=== PATIENT | male | born 1935 | race Caucasian/White ===

== ENCOUNTER → 2021-12-15 14:51 | Outpatient (REF) | payer OTHER, SELFPAY ==
[2021-12-15 14:39] LABS: % Basophils 0.5 % (0-2); % Eosinophils 4.8 % (0-6); % Immature Granulocytes 0.6 % (0-0.5); % Lymphocytes 20.1 % (20.5-51.1); % Monocytes 7.2 % (1.7-9.3); % Neutrophils 66.8 % (42.2-75.2); Absolute Eosinophils 0.4 10^3/uL (0-0.7); Absolute Immature Granulocytes 0.1 10^3/uL (0-0.05); Absolute Lymphocytes 1.6 10^3/uL (1.2-3.4); Absolute Monocytes 0.6 10^3/uL (0.1-0.6); Absolute Neutrophils 5.3 10^3/uL (1.4-6.5); Hematocrit 26.5 % (39.0-52.0); Hemoglobin 9.1 g/dL (13.0-18.0); Mean Corp Hgb Conc. 34.3 g/dL (33.0-37.0); Mean Corpuscular Hgb 35.4 pg (27.0-31.0); Mean Corpuscular Volume 103.1 fL (80.0-94.0); Mean Platelet Volume 9.8 fL (7.4-10.4); Nucleated Red Blood Cells % 0.5 % (-); Platelet Count 338 10^3/uL (130-400); Red Blood Cell Count 2.57 10^6/uL (4.70-6.10); Red Cell Dist. Width 22.9 % (11.5-14.5); White Blood Cell Count 7.9 10^3/uL (4.8-10.8)
== END ==
LOC: OIDL 14:51
PROVIDERS: ATTENDING PHYSICIAN Internal Medicine Hematology & Oncology; FAMILY PHYSICIAN Family Medicine
DX: D64.3 Other sideroblastic anemias (principal); N18.31 Chronic kidney disease, stage 3a
CPT/HCPCS: 85025

== ENCOUNTER → 2023-05-11 12:45 | Outpatient (REF) | payer OTHER, SELFPAY ==
[2023-05-11 13:15] LABS: % Basophils 1.1 % (0-2); % Eosinophils 0.1 % (0-6); % Immature Granulocytes 3.9 % (0-0.5); % Lymphocytes 7.1 % (20.5-51.1); % Monocytes 5.6 % (1.7-9.3); % Neutrophils 82.2 % (42.2-75.2); Absolute Basophils 0.1 10^3/uL (0-0.2); Absolute Immature Granulocytes 0.4 10^3/uL (0-0.05); Absolute Lymphocytes 0.8 10^3/uL (1.2-3.4); Absolute Monocytes 0.6 10^3/uL (0.1-0.6); Absolute Neutrophils 9.1 10^3/uL (1.4-6.5); Hematocrit 28.4 % (39.0-52.0); Hemoglobin 9.3 g/dL (13.0-18.0); Mean Corp Hgb Conc. 32.7 g/dL (33.0-37.0); Mean Corpuscular Hgb 34.4 pg (27.0-31.0); Mean Corpuscular Volume 105.2 fL (80.0-94.0); Mean Platelet Volume 9.2 fL (7.4-10.4); Platelet Count 249 10^3/uL (130-400)
== END ==
LOC: OIDL 12:45
PROVIDERS: ATTENDING PHYSICIAN Internal Medicine Hematology & Oncology
DX: D64.3 Other sideroblastic anemias (principal)
CPT/HCPCS: 36415; 85025

== ENCOUNTER → 2023-05-12 12:54 | Outpatient (REF) | payer OTHER, SELFPAY | LOC: PAVMRI 12:54 | PROVIDERS: ATTENDING PHYSICIAN Family Medicine | DX: M54.17 Radiculopathy, lumbosacral region (principal) | CPT/HCPCS: 72148 ==

== ENCOUNTER 2023-05-18 15:09 | Inpatient (IN) | payer OTHER, SELFPAY ==
[2023-05-18] VITALS (9 sets, daily range): BP systolic 97–121; BP diastolic 53–75; PULSE 90–122; BMI 18.8
[2023-05-18 12:11] LABS: % Basophils 0.1 % (0-2); % Lymphocytes 1.1 % (20.5-51.1); % Monocytes 4.6 % (1.7-9.3); % Neutrophils 92.2 % (42.2-75.2); Absolute Immature Granulocytes 0.3 10^3/uL (0-0.05); Absolute Lymphocytes 0.2 10^3/uL (1.2-3.4); Absolute Monocytes 0.6 10^3/uL (0.1-0.6); Absolute Neutrophils 12.3 10^3/uL (1.4-6.5); Hematocrit 25.9 % (39.0-52.0); Hemoglobin 8.7 g/dL (13.0-18.0); Mean Corp Hgb Conc. 33.6 g/dL (33.0-37.0); Mean Corpuscular Hgb 34.5 pg (27.0-31.0); Mean Corpuscular Volume 102.8 fL (80.0-94.0); Mean Platelet Volume 9.2 fL (7.4-10.4); Nucleated Red Blood Cells % 3.7 % (-); Platelet Count 227 10^3/uL (130-400); Red Blood Cell Count 2.52 10^6/uL (4.70-6.10); Red Cell Dist. Width 24.8 % (11.5-14.5); White Blood Cell Count 13.3 10^3/uL (4.8-10.8)
--- NOTE | 2023-05-18 12:20 | ED.GENMED ---
History of Present Illness
General
Chief Complaint: Chest Pain
Source: patient
Exam Limitations: none
Time Seen by Provider: 05/18/23 12:08
Travel History
Have you had any contact with someone who has COVID-19?: No
Do you have any symptoms of coronavirus? Fever > 100 degrees, chills, cough, shortness of breath, sore throat, loss of taste or smell, muscle aches, or headache?: Yes
Symptoms:: SOB
History of Present Illness
History of Present Illness:
See MDM
Past History
Past History
ED Past Medical History: Arrthythmia, CHF and Other (MDS, sideroblastic anemia)
ED Past Surgical History: Appendectomy and Orthopedic
Social History
Tobacco: Non-smoker
Alcohol: None
Drug: None
Personal:
Living: assisted living
Employment: Retired
Family History
Family History: Other (Noncontributory)
Phy Exam
Physical Exam
Physical Exam:
See MDM
Scores
Heart Score for Chest Pain Patients
STEMI patient?: No
History: Moderately Suspicious
ECG: Nonspecific Repolarization
Age: >45 - <65 years
Risk Factors: 1 or 2 Risk Factors
Troponin: >1 - <3 x Normal Limit
Heart Score for Chest Pain Patients: 5
Heart Score Risk: 20.3% MACE over next 6 weeks
Course
Orders/Labs/Results
Orders:
Orders
05/18/23 11:39
Electrocardiogram (*1) Urgent
Reason for Study: Chest Pain
05/18/23 11:40
EKG- Treatment ONCE
05/18/23 12:02
CMP [Comprehensive Metabolic Panel] Urgent
Complete Blood Count/With Diff Urgent
NT-proBNP Urgent
Comment: ADD ON
Troponin I Urgent
05/18/23 12:16
Oxycodone/Acetaminophen [Percocet 5/325] 1 tablet PO NOW STA
05/18/23 12:20
Electrocardiogram (*1) Urgent
Reason for Study: Shortness of Breath
EKG- Treatment ONCE
05/18/23 12:52
Add On- LAB Urgent
Tests Added?: Pro-BNP
05/18/23 12:53
CR Chest - 2 Views Urgent
Comment:
Reason For Exam: SOB
Abnormal Lab Results
05/18/23
12:02
WBC 13.3 H 10^3/uL
(4.8-10.8)
RBC 2.52 L 10^6/uL
(4.70-6.10)
Hgb 8.7 L g/dL
(13.0-18.0)
Hct 25.9 L %
(39.0-52.0)
MCV 102.8 H fL
(80.0-94.0)
MCH 34.5 H pg
(27.0-31.0)
RDW 24.8 H %
(11.5-14.5)
Abs Immat Gran (auto) 0.3 H 10^3/uL
(0-0.05)
Absolute Neuts (auto) 12.3 H 10^3/uL
(1.4-6.5)
Absolute Lymphs (auto) 0.2 L 10^3/uL
(1.2-3.4)
Immature Gran % 2.0 H %
(0-0.5)
Neutrophils % 92.2 H %
(42.2-75.2)
Lymphocytes % 1.1 L %
(20.5-51.1)
Sodium 132 L mmol/L
(135-145)
Carbon Dioxide 21 L mmol/L
(22-30)
BUN 90 H mg/dl
(9-20)
Creatinine 2.3 H mg/dL
(0.7-1.3)
Glucose 271 H mg/dl
(70-99)
Calcium 8.0 L mg/dl
(8.4-10.2)
Troponin I 0.049 H* ng/ml
Total Protein 5.1 L g/dl
(6.3-8.2)
Albumin 3.0 L g/dl
(3.5-5.0)
05/18/23 12:02
05/18/23 12:02
Vital Signs
Initial and Last Documented VS:
Initial Vital Signs
Pulse Resp BP Pulse Ox
100 16 102/61 99
05/18/23 11:40 05/18/23 11:40 05/18/23 11:40 05/18/23 11:40
Last Documented Vital Signs
Temp Pulse Resp BP Pulse Ox
97.9 F 113 17 102/61 98
05/18/23 11:43 05/18/23 13:15 05/18/23 13:15 05/18/23 11:40 05/18/23 12:15
MDM/Problems Addressed
Differential Diagnosis Includes:
HPI and MDM Narrative:
87-year-old male presenting for evaluation of shortness of breath and chest pain. EMS provided oxygen and patient started feeling better. On arrival, oxygen was removed. Patient is not hypoxic. Patient states all of his symptoms have resolved.
Initially, patient appeared to be in A-fib with RVR. While I talk to the patient, he appeared to intermittently go from rate controlled A-fib to normal sinus rhythm. Patient states he is feeling good enough to go home. Clinically, patient has
very dry mucous membranes. Overdiuresis but he does have significant leg edema bilaterally. Patient states he has been sleeping in a chair due to back pain. Prior records evaluated showing back MRI with concern for pathologic fractures. The
persistent leg edema is likely related to sleeping in a chair
Will give dose of Percocet for back pain. Patient states he is currently on steroids for his back pain
Physical exam
General: Weak and frail
HEENT: protecting airway
Neck: appears supple
CV: No evidence of cyanosis. Mild tachycardia
Resp: No accessory muscle use. Lungs clear
Abd: Non-distended
Extremities: +3 pitting edema bilateral lower extremities
Neuro: alert
Psych: Normal affect
Skin: Intact
Problems Addressed including Acute and Chronic Conditions affecting care:
1. Shortness of breath and chest pain
Acuity: acute
Prognosis: stable
Details: Symptoms have resolved with resolution of A-fib with RVR.
2. Back pain
Acuity: acute
Prognosis: stable
Details: Recent MRI shows evidence of pathologic fractures. Will give Percocet
Updates
Patient found to have a mild troponin elevation but he is currently denying chest pain or shortness of breath. Patient is stable while laying in bed. However, he becomes too short of breath going from bed to bathroom. Prior records indicate
history of elevated troponin which was believed to be secondary to uncontrolled heart rate and CHF exacerbation. BNP added which is lower than baseline and his chest x-ray is clear. Will admit based on the troponin and exertional dyspnea
Differential Diagnosis (but not limited to): A-fib, ACS, pulmonary edema
Testing considered: Chest x-ray but lungs clear
Drug therapy (if applicable): OTC meds, please see d/c instruction regarding Rx drugs
Amount and/or Complexity of Data Reviewed
Clinical info obtained from: Patient
External data reviewed: Prior history of elevated troponin related to tachycardia and CHF exacerbation
Labs I independently reviewed (but not limited to): Leukocytosis but patient states he is on steroids for back pain
Radiology: X-ray independently reviewed: Chest x-ray clear
Pulse Ox: not hypoxic
EKG independently reviewed: A-fib with RVR, normal axis, no STEMI
[employer]: Intermittently between A-fib and sinus rhythm
Critical Care: N/A
Risk of Complication:
Social Determinants of health: Good social support
Discussed with other providers: Hospitalist
Escalation of Care includes Admit/Obs: Given the elevated with exertional dyspnea, will admit
Occasional wrong word or 'sound a like' substitutions may have occurred due to the inherent limitations of voice recognition software. Read the chart carefully and recognize, using context, where substitutions have occurred.
*Critical Care Note
Total Time (30-74mins, 75-104mins- exclusive of procedures): Not Applicable
ED Attending Note
-
Portions of this chart may have been created with voice recognition software.� Occasional wrong word or��sound alike� substitutions may have occurred due to the inherent limitations of voice recognition software.
Discharge Plan
Departure
Patient Disposition: Admit
Date of Disposition: 05/18/23
Time of Disposition: 14:18
Admit to: Telemetry
Presentation/result/management discussed w/ accepting MD/DO: Hospitalist
Discharge Problem:
Exertional dyspnea, Atrial fibrillation with rapid ventricular response
Prescriptions:
No Action
PreserVision AREDS-2 1 EACH capsule
2 ea PO DAILY
furosemide [Lasix] 40 MG tablet
20 mg PO DAILY
amiodarone 200 mg Tablet
200 mg PO DAILY
Ensure Liquid
1 ea PO DAILY
acetaminophen 325 mg tablet
650 mg PO Q4HPRN PRN (Reason: mild pain/NEVES/temp> 100.4F)
Eliquis 2.5 MG tablet
2.5 mg PO BID
tamsulosin 0.4 mg Capsule
0.8 mg PO DAILY Qty: 0 0RF
ciprofloxacin HCl 500 mg Tablet
500 mg PO BID
Referrals:
NONE,* [Active] -
Interventions
Interventions:
*Risk Screen - Suicide Last Done: 05/18/23 11:50
*General Assessment Last Done: 05/18/23 11:50
*Neglect/Abuse Screening Last Done: 05/18/23 11:50
ED- Fall Risk Assessment Last Done: 05/18/23 11:50
*ED COVID-19 Vaccine History Last Done: 05/18/23 11:50
ED- Cardiac Assessment Last Done: 05/18/23 11:50
[2023-05-18 12:34] LABS: ALT (SGPT) 50 U/L (0-50); AST (SGOT) 35 U/L (17-59); Alkaline Phosphatase 122 U/L (38-126); Blood Urea Nitrogen 90 mg/dl (9-20); Carbon Dioxide 21 mmol/L (22-30); Chloride 105 mmol/L (98-107); Estimated Creatinine Clearance 19 ml/min; Glucose 271 mg/dl (70-99); Potassium 4.6 mmol/L (3.5-5.1); Sodium 132 mmol/L (135-145); Total Bilirubin 1.3 mg/dl (0.2-1.3); Total Protein 5.1 g/dl (6.3-8.2); eGFR 26.98
[2023-05-18] MEDS: PERCOCET 5/325 1 TABLET PO (12:39)
[2023-05-18 12:49] LABS: Troponin I 0.049 ng/ml
[2023-05-18 13:23] LABS: NT-proBNP 944 pg/ml
[2023-05-18 13:38] LABS: Anisocytosis 1+; Hypochromasia 1+; Macrocytosis Few; Normal RBC Morphology No; Ovalocytes Slight
--- NOTE | 2023-05-18 14:59 | HPS.HSE ---
Family Physician
-
Family Physician: Duglas Cherry
Chief Complaint
-
Chest discomfort, dyspnea on exertion
History of Present Illness
87-year-old male with multiple medical problems here complaining of chest pressure and dyspnea on exertion. Somewhat vague historian but he thinks it may have started yesterday but noticed it more today. EMS was called and he was transported to
the emergency room. Not noted to be hypoxic but does have dyspnea on exertion in the emergency room.
Has had multiple falls and recently diagnosed with bilateral sacral fractures. Lives with his elderly at home. 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
Medical History
Past Medical History
Past Medical History: Reports Other
Additional Past Medical History:
Myelodysplastic syndrome
Paroxysmal atrial fibrillation
Chronic heart failure preserved EF
CKD4
Lumbar spinal stenosis
BPH
Macular degeneration
Moderate protein calorie malnutrition
Past Surgical History: Reports Appendectomy
Additional Past Surgical History:
Hernia repair
Social History
Tobacco: Non-smoker
Alcohol: Occasional
Drug: None
Personal:
Living: With Family
Family History
Family History: Not pertinent
Allergies / Home Medications
Allergies reflects when Allergies were last updated in [facility].
Home Medications with original date entered in [facility]
Allergy/Medication List:
Allergies
Allergy/AdvReac Type Severity Reaction Status Date / Time
No Known Allergies Allergy Verified 10/14/22 12:12
Home Medications
vit C 250 mg-vit E 90 mg-zinc 40 mg-copper 1 [id number] capsule (PreserVision AREDS-2) 2 ea PO DAILY Supplement 01/01/20
furosemide 40 mg tablet (Lasix) 40 mg PO DAILY Fluid retention/Swelling 09/27/21
amiodarone 200 mg tablet 200 mg PO DAILY Heart disease/condition 12/06/21
apixaban 2.5 mg tablet (Eliquis) 2.5 mg PO BID Blood clot prevention/tx 07/19/22
cholecalciferol (vitamin D3) 25 mcg (1,000 unit) tablet (Vitamin D3) 25 mcg PO DAILY Supplement 05/18/23
finasteride 5 mg tablet 5 mg PO DAILY 05/18/23
prednisone 20 mg tablet 20 mg PO BID inflammation 05/18/23
sulfamethoxazole 400 mg-trimethoprim 80 mg tablet 1 tab PO BID Infection 05/18/23
Review of Systems
-
History Source: Patient
A 12 point ROS was completed and negative except as noted: Yes
Respiratory: Reports Trouble Breathing; Denies Cough
Cardiac: Reports Chest Pain
Physical Exam
Vital Signs
Vital Signs
Temp Pulse Resp BP Pulse Ox
97.9 F 97 17 99/63 98
05/18/23 11:43 05/18/23 14:15 05/18/23 14:15 05/18/23 14:00 05/18/23 12:15
Physical Exam
General: Well Developed, Well Nourished, No Apparent Distress and Comfortable
HEENT: Anicteric; No Moist mucous membranes
Respiratory: Clear
Cardiac: S1/S2, Irregular Rhythm and Tachycardia
GI: Soft, Non Tender and Non Distended
Musculoskeletal: No Clubbing, No Cyanosis, Edema, Left Lower Extremity and Edema, Right Lower Extremity
Skin: Warm and Dry
Neuro: AO x 3
Hematologic/Lymphatic: No Lymphadenopathy
Psych: Calm
Laboratory Results
-
05/18/23 12:02
05/18/23 12:02
Laboratory Results
Total Bilirubin 1.3 mg/dl (0.2-1.3) 05/18/23 12:02
AST 35 U/L (17-59) 05/18/23 12:02
ALT 50 U/L (0-50) 05/18/23 12:02
Alkaline Phosphatase 122 U/L (38-126) 05/18/23 12:02
Troponin I 0.049 ng/ml H* 05/18/23 12:02
Impression/Plan
-
Acute hypoxic respiratory insufficiency - possibly due to rapid atrial fibrillation. Given complaints of chest pressure, rule out ACS. Rule out congestive heart failure exacerbation. Admit to telemetry. Consult cardiology. Chest x-ray noted to
be clear.
Paroxysmal atrial fibrillation with RVR -continue Eliquis, amiodarone. Does not appear to be on a rate controlling medication. Relative hypotension noted, 99/63. Heart rate in the emergency room averaging 97-110.
Had successful cardioversion in February 2022. Monitor on telemetry, request cardiology input.
TSH was 1.42 in October.
Elevated troponin -with complaints of chest pain, rule out ACS. Admit to telemetry and trend troponins. EKG with nonspecific ST and T wave abnormality, rapid atrial fibrillation. Cardiology consulted.
Hyponatremia -suspect pseudohyponatremia related to hyperglycemia. Check labs. Hyponatremia could also be in response to pain from his sacral fracture.
Hyperglycemia -suspect exacerbated by recent initiation of prednisone for his sacral fracture. Check hemoglobin A1c, rule out DM2.
Subacute bilateral sacral fractures - suspect traumatic and due to fall and underlying osteoporosis. Has had multiple falls in the past. Fractures confirmed by lumbar MRI performed 05/12/2023. I spoke with spine surgery Dr. Dereje Devries, he does not
recommend surgical intervention. Recommends medical management, consideration of IR consult.
Patient was started on prednisone several days ago for his sacral pain due to the fracture. He does not believe it is helping much. We can discontinue and try other means of pain control. He did feel better with a dose of Percocet given in the
emergency room.
Myelodysplastic syndrome -followed by [facility].
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 Patient states catheter was just changed a couple days ago. Visiting nurse noted dark sediment in the bag and a urinalysis was sent which reportedly suggested a UTI. Culture results not
available. Patient was started on Bactrim single strength twice daily on May 15. Did not take a dose this morning. He denied any UTI symptoms at that at the time and therefore I am not certain that this represents a true infection. Will
check urinalysis.
Chronic heart failure preserved EF -appears to be volume overloaded with bilateral lower extremity edema. Chest x-ray however read as clear. I hear no rales on exam. BNP 944. Resume oral Lasix.
CKD stage IV -stable.
Heterozygous hemochromatosis
Macular degeneration, nonexudative
Colon polyp/diverticulosis
DNR -confirmed with patient.
Ambulatory dysfunction -consult PT/OT.
--- NOTE | 2023-05-18 15:39 | CON.CAR ---
Addendum entered and electronically signed by Krystian Michelle MD 05/18/23 17:03:
I saw and examined the patient.
The SENIOR ELECTRICAL PROJECT MANAGER's note was reviewed and I agree with the note.
Comment: 87 yo Frail M with MDs, PAF on amiodarone, HFpEF p.w with multiple somatic complaints. To me, he complains of hip pain. He was sob and had a sense of af but that has resolved. He missed Eliquis this am and some time last week. He may have
been less active the last two days due to back pain but this historical piece of information keeps changing. no jvp lungs cta and irreg irreg no m/r/g. His legs have 2+ pitting edema into the feet. CXR is not c/w pulm edema. I don't think he is in
decompensated heart failure. I would continue typical lasix. I will add tubigrips for le edema. Re his rhythm he is rate controlled. I don't recommend GLORIA in this frail man. Will have him prove 3 weeks of Eliquis compliance then arrange dccv as
ouptatient. I will update his echo as history is so difficult.
Original Note:
Consultation
Consultation Request
Date/Time Consultation Requested: 05/18/23 1451
Date/Time Consultation Performed: 05/18/23 1543
Requesting Provider: Dr. Cook
Performing Provider: Erica MEDLEY for Dr. Michelle
Reason for Consultation: AFIB, SOB, abnormal troponin
Medical History
-
Chief Complaint: SOB, palpitations
History of Present Illness:
87 y/o male with MDS, chronic anemia, macular degeneration, glaucoma, CKD, AFIB on amiodarone and Eliquis, and HFpEF (improved CM), and chronic ferro who is here for evaluation of feeling short of breath with exertion today. There is some mild chest
discomfort/palps and light-headedness as well. He feels fine at rest. He denies any fever or chills. He recently was started on abx for UTI, which he clearly has with dark/foul smelling urine.
Past Medical History
Past Medical History: Arrhythmias and Other (CKD, as above)
Social History
Personal:
Living: With Family
Family History
Family History: Reviewed & Not Pertinent
Allergies / Home Medications
Allergy/AdvReac Type Severity Reaction Status Date / Time
No Known Allergies Allergy Verified 10/14/22 12:12
Medication Instructions Recorded Confirmed Type
vit C 250 mg-vit E 90 mg-zinc 40 2 ea PO DAILY Supplement 01/01/20 10/14/22 History
mg-copper 1 [id number]
capsule (PreserVision AREDS-2)
furosemide 40 mg tablet (Lasix) 40 mg PO DAILY Fluid 09/27/21 05/18/23 History
retention/Swelling
amiodarone 200 mg tablet 200 mg PO DAILY Heart 12/06/21 05/18/23 History
disease/condition
apixaban 2.5 mg tablet (Eliquis) 2.5 mg PO BID Blood clot 07/19/22 05/18/23 History
prevention/tx
cholecalciferol (vitamin D3) 25 25 mcg PO DAILY Supplement 05/18/23 05/18/23 History
mcg (1,000 unit) tablet (Vitamin
D3)
finasteride 5 mg tablet 5 mg PO DAILY 05/18/23 05/18/23 History
prednisone 20 mg tablet 20 mg PO BID inflammation 05/18/23 05/18/23 History
sulfamethoxazole 400 1 tab PO BID Infection 05/18/23 05/18/23 History
mg-trimethoprim 80 mg tablet
Review of Systems
-
History Source: Patient
All other systems: Negative unless noted
Respiratory: Trouble Breathing
Cardiac: Chest Pain and Palpitations
: Dark Urine
Physical Exam
Vital Signs
Temp Pulse Resp BP Pulse Ox
97.9 F 97 17 99/63 98
05/18/23 11:43 05/18/23 14:15 05/18/23 14:15 05/18/23 14:00 05/18/23 12:15
Lab Results
05/18/23 12:02
05/18/23 12:02
Troponin I 0.049 ng/ml H* 05/18/23 12:02
Quc-E-Jakexuzkoqi Pept 944 pg/ml 05/18/23 12:02
Physical Exam
General: Well Developed and No Apparent Distress
HEENT: Normocephalic and Anicteric
Respiratory: Clear and Non Labored Respirations
Cardiac: Irregular Rhythm, Murmur (II/ systolic) and Peripheral Edema (mild-moderate BLE edema L > R)
Musculoskeletal: Edema
Skin: Warm and Dry
Neuro: AO x 3
Psych: Calm
Impression / Plan
-
LUCIANO:
-update echo
-patient CXR and BNP okay
-patient with afib, which has been symptomatic in the past
BLE edema:
-likely dependent edema
-add leg wraps
HFpEF:
-denies weight gain
-CXR and BNP okay
-continue lasix and monitor
AFIB:
-rates 80's-100's in ER
-continue amiodarone
-continue Eliquis- missed a pill 1-2 weeks ago- can set up for CV after 4 weeks of no missed doses
Abnormal troponin:
-suspect non-ischemic myocardial injury (anemia, kidney disease, afib, infectious process)
-trend to peak
-checking echo
UTI:
-patient recently reported being treated for a UTI. He has dark/foul smelling urine, and a chronic Ferro catheter. Management per internal medicine.
Anemia:
-similar to previous
-denies bleeding
Data Reviewed
-
EKG: Tracing Personally Visualized and interpreted (AFIB [address]/T abnormalities)
Radiology: Report Reviewed by me (CXR: No evidence of active cardiopulmonary disease.)
Medical Tests (Nuc Med, Echo etc): Report Reviewed by me (echo 07/22/22: Normal left ventricular size and systolic function. Mild to moderate aortic regurgitation. Mild to moderate mitral regurgitation. Mild tricuspid regurgitation. Mildly
dilated aortic root. Compared to the previous echo report the estimated PASP has decreased from 61mmHg to 35-40 )
Labs: Labs Reviewed by me
[2023-05-18] MEDS: LASIX 40 MG PO (16:40)
[2023-05-18] MEDS: PACERONE 200 MG PO (16:40)
--- NOTE | 2023-05-18 16:41 | PTCARENOTE ---
Received patient from ED via stretcher. AAOx3, assisted x2 to bed. Unsteady and weakness noted. Assessed and oriented to room. monitor technician reading Afib. Call garsia in close reach.
[2023-05-18] MEDS: NOVOLOG FLEXPEN-LOW RESISTANCE SC (16:44)
[2023-05-18 16:47] LABS: Glucose - Point of Care 88 mg/dl (70-99)
[2023-05-18 17:35] LABS: Urine Albumin 1+ (Neg - Trace); Urine Bilirubin Negative (Negative); Urine Character Slightly Cloudy (Clear); Urine Color Yellow; Urine Glucose Negative (Negative); Urine Ketone Negative (Negative); Urine Leukocyte 2+ (Negative); Urine Nitrite Negative (Negative); Urine Occult Blood 4+ (Negative); Urine Urobilinogen Negative (Neg - 1+)
[2023-05-18 17:40] LABS: Urine Red Blood Cell >100 /HPF (0-2); Urine Squamous Cell 0-2 /LPF (Few); Urine Triple Phosphate Crystal Present
[2023-05-18 17:41] LABS: Urine Bacteria Moderate (Negative)
[2023-05-18 18:32] LABS: Troponin I 0.102 ng/ml
--- NOTE | 2023-05-18 19:07 | PTCARENOTE ---
Troponin increased from 0.[address] Michelle made aware. No new orders given. Will continue to monitor.
[2023-05-18] MEDS: ELIQUIS 2.5 MG PO (20:25)
[2023-05-18 21:24] LABS: Glucose - Point of Care 149 mg/dl (70-99)
[2023-05-19] VITALS (9 sets, daily range): BP systolic 93–129; BP diastolic 54–77; PULSE 122–170; O2SAT 99; BMI 16.9
[2023-05-19 01:16] LABS: Troponin I 0.096 ng/ml
[2023-05-19 07:32] LABS: Glucose - Point of Care 121 mg/dl (70-99)
[2023-05-19 07:36] LABS: % Basophils 0.2 % (0-2); % Eosinophils 0.4 % (0-6); % Immature Granulocytes 1.7 % (0-0.5); % Monocytes 2.9 % (1.7-9.3); % Neutrophils 89.8 % (42.2-75.2); Absolute Immature Granulocytes 0.2 10^3/uL (0-0.05); Absolute Lymphocytes 0.6 10^3/uL (1.2-3.4); Absolute Monocytes 0.3 10^3/uL (0.1-0.6); Absolute Neutrophils 9.9 10^3/uL (1.4-6.5); Hematocrit 28.6 % (39.0-52.0); Hemoglobin 9.6 g/dL (13.0-18.0); Mean Corp Hgb Conc. 33.6 g/dL (33.0-37.0); Mean Corpuscular Hgb 34.7 pg (27.0-31.0); Mean Corpuscular Volume 103.2 fL (80.0-94.0); Mean Platelet Volume 9.5 fL (7.4-10.4); Nucleated Red Blood Cells % 2.7 % (-); Platelet Count 230 10^3/uL (130-400); Red Blood Cell Count 2.77 10^6/uL (4.70-6.10); Red Cell Dist. Width 25.2 % (11.5-14.5)
[2023-05-19 07:51] LABS: Troponin I 0.085 ng/ml
[2023-05-19 08:08] LABS: Blood Urea Nitrogen 85 mg/dl (9-20); Calcium 8.3 mg/dl (8.4-10.2); Carbon Dioxide 26 mmol/L (22-30); Chloride 102 mmol/L (98-107); Estimated Creatinine Clearance 21 ml/min; Glucose 96 mg/dl (70-99); Potassium 4.4 mmol/L (3.5-5.1); Sodium 135 mmol/L (135-145); eGFR 33.93
[2023-05-19] MEDS: NOVOLOG FLEXPEN-LOW RESISTANCE SC (08:21)
[2023-05-19] MEDS: ELIQUIS 2.5 MG PO ×2 (08:33→20:24)
[2023-05-19] MEDS: PACERONE 200 MG PO (08:33)
[2023-05-19] MEDS: LASIX 40 MG PO (08:34)
--- NOTE | 2023-05-19 08:36 | W.PN.CD ---
Today's Communication / Plan
-
- start metoprolol
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
Impression / Plan
-
87 y/o male with MDS, chronic anemia, macular degeneration, glaucoma, CKD, AFIB on amiodarone and Eliquis, and HFpEF (improved CM), and chronic ferro who is here for evaluation of feeling short of breath with exertion today. He was found to be in
AF RVR and TTE is pending.
LUCIANO:
-update echo
-patient CXR and BNP okay
-patient with afib, which has been symptomatic in the past
BLE edema:
-likely dependent edema
-add leg wraps
HFpEF: Weight this AM is 118, he tells me he is losing weight
-denies weight gain
-CXR and BNP okay
-continue lasix and monitor
AFIB RVR:
-rates now have been >100
- start metoprolol 25 mg
-continue amiodarone
-continue Eliquis- missed a pill 1-2 weeks ago- can set up for CV after 4 weeks of no missed doses
Abnormal troponin:
-suspect non-ischemic myocardial injury (anemia, kidney disease, afib, infectious process)
-trend to peak
-checking echo
UTI:
-patient recently reported being treated for a UTI. He has dark/foul smelling urine, and a chronic Ferro catheter. Management per internal medicine.
Anemia:
-similar to previous
-denies bleeding
Subjective: He feels his breathing is stable, he is very frail appearing
Physical Exam
Vital Signs/Labs
Vital Signs
Temp Pulse Resp BP Pulse Ox
97.8 F 123 18 101/66 99
05/19/23 04:43 05/19/23 08:33 05/19/23 04:43 05/19/23 08:33 05/19/23 04:43
05/18/23 05/19/23 05/20/23
06:59 06:59 06:59
Actual Weight 118 lb 2 oz
05/19/23 06:34
05/19/23 06:34
05/18/23
12:02
Vgr-P-Aatlowrwfws Pept 944
LAB Results
05/18/23 05/18/23 05/19/23
12:02 17:59 00:39
Troponin I 0.049 H* 0.102 H* D 0.096 H*
05/19/23
06:34
Troponin I 0.085 H*
Physical Exam
Constitutional: No acute distress and Other (chronically ill appearing )
EENT: Anicteric
Cardiovascular: Rhythm/rate is irregular and Pedal edema present
Respiratory: Respiratory effort normal and Lungs clear to auscul.
GI: Soft
Neuro/Psych: AO x 3
Data Reviewed
-
Date of Service: May 19, 2023
EKG: Tracing Personally Visualized and interpreted
Echo: Report Reviewed by me
Labs: Labs Reviewed by me
--- NOTE | 2023-05-19 08:48 | W.PN.HOSP.TC ---
Today's Communication/Plan
-
PT/OT
Echocardiogram
TSH
Add metoprolol
Assessment / Plan
Assessment / Plan
Gen-AAOx3, NAD
HEENT-NC, AT, anicteric, clear oral mm
Neck-supple
CV-reg, no M, +S1/S2
Lungs-clear B/L
Abd-soft, NT, ND
Ext-no edema
Musculoskeletal-no cyanosis, clubbing
Skin-warm and dry
Neuro-grossly non-focal
Psych-calm, cooperative
Acute hypoxic respiratory insufficiency - possibly due to rapid atrial fibrillation.� Oxygenation normal on room air.
Paroxysmal atrial fibrillation with RVR -continue Eliquis, amiodarone.� Add metoprolol 25 mg 3 times daily. Check TSH.
Elevated troponin -with complaints of chest pain, rule out ACS.� Admit to telemetry and trend troponins.� EKG with nonspecific ST and T wave abnormality, rapid atrial fibrillation.� troponins now trending down. Cardiology following.
Hyponatremia -suspect pseudohyponatremia related to hyperglycemia.� Sodium improved.
Hyperglycemia -suspect exacerbated by recent initiation of prednisone for his sacral fracture.� Check hemoglobin A1c, rule out DM2. Glucose 96 this morning. Steroids discontinued.
Subacute bilateral sacral fractures - suspect traumatic and due to fall and underlying osteoporosis.� Has had multiple falls in the past.� Fractures confirmed by lumbar MRI performed 05/12/2023. I spoke with spine surgery Dr. Dereje Devries, he does not
recommend surgical intervention.� Recommends medical management, consideration of IR consult. I spoke with Dr. Schafer from IR department, he will ask his colleagues whether or not they are able to consider sacroplasty.
Patient was started on prednisone several days ago for his sacral pain due to the fracture.� He does not believe it is helping much.� We can discontinue and try other means of pain control.� He did feel better with a dose of Percocet given in the
emergency room.
Myelodysplastic syndrome -followed by [facility].
BPH/chronic urinary retention -Womack catheter dependent.� Patient states catheter was just changed a couple days ago.� Visiting nurse noted dark sediment in the bag and a urinalysis was sent which reportedly suggested a UTI.� Culture results not
available.� Patient was started on Bactrim single strength twice daily on May 15.� Did not take a dose this morning.� He denied any UTI symptoms at that at the time and therefore I am not certain that this represents a true infection.�
Urinalysis done here does not show pyuria. Does show RBCs and blood, moderate bacteria. Urine culture pending. Hold further antibiotics for now.
Chronic heart failure preserved EF -appears to be volume overloaded with bilateral lower extremity edema.� Chest x-ray however read as clear.� I hear no rales on exam.� BNP 944.� Continue oral Lasix. Echocardiogram pending.
CKD stage IV -stable.
Heterozygous hemochromatosis
Macular degeneration, nonexudative
Colon polyp/diverticulosis
DNR -confirmed with patient.
Ambulatory dysfunction -consult PT/OT.
Anticipated Discharge: Within 24 hours
Subjective/Interval History
-
Date of Service: May 19, 2023
Patient seen and examined. Complaining of poor sleep due to uncomfortable hospital bed. Denies shortness of breath or chest pain.
Objective Data
-
Labs:
Laboratory Results
05/19/23
06:34
WBC 11.0 H
Hgb 9.6 L
Hct 28.6 L
Plt Count 230
Sodium 135
Potassium 4.4
Chloride 102
Carbon Dioxide 26
BUN 85 H
Creatinine 1.9 H
Glucose 96
Calcium 8.3 L
Vital Signs:
Vital Signs
Temp Pulse Resp BP Pulse Ox
97.8 F 123 18 101/66 99
05/19/23 04:43 05/19/23 08:33 05/19/23 04:43 05/19/23 08:33 05/19/23 04:43
I&O
0205/19/23 05/20/23
06:59 06:59 06:59
Intake Total 475 / 475
Output Total 1999
Balance -1525 / -1525
Review of Systems
-
History Source: Patient
All other systems: Reviewed and negative
--- NOTE | 2023-05-19 08:57 | VNURNOTE ---
Patient is current with [facility] since 10/25 w/SN, will monitor progress and plan at discharge.
[2023-05-19] MEDS: LOPRESSOR 25 MG PO ×2 (10:12→20:24)
[2023-05-19] MEDS: TYLENOL 650 MG PO ×2 (10:18→20:27)
[2023-05-19 10:46] LABS: TSH 1.62 uIU/ml (0.47-4.68)
[2023-05-19 11:06] LABS: Glycohemoglobin (HgbA1c) 6.5 % (4.0-5.6)
[2023-05-19 11:51] LABS: Glucose - Point of Care 170 mg/dl (70-99)
[2023-05-19] MEDS: NOVOLOG FLEXPEN-LOW RESISTANCE 1 UNITS SC ×2 (11:57→16:35)
[2023-05-19 16:31] LABS: Glucose - Point of Care 150 mg/dl (70-99)
--- NOTE | 2023-05-19 16:36 | CM ---
CM following re: d/c planning
CM met with the patient at bedside; IA completed
Pt states he and his spouse reside in a split-level home
Pt reports at baseline he is assisted at baseline
Pt is current with [facility], has been to both [facility] for rehab, & has a stair lift, r/w, & rollator
Pt has prescription coverage and rx's are filled at [facility] on [facility]
Pt PCP-Dr. Duglas Cherry
Per PT/OT evals post d/c recommendation is for SNF
CM will continue to monitor patient progress and assist with needs at d/c as indicated
PLAN; d/c to SNF
[2023-05-19] MEDS: LOPRESSOR PO (16:40)
[2023-05-19 20:53] LABS: Glucose - Point of Care 131 mg/dl (70-99)
[2023-05-20] MEDS: PERCOCET 5/325 1 TABLET PO ×3 (02:14→15:16)
[2023-05-20 02:15] VITALS: BP 103/57
[2023-05-20 06:00] VITALS: BMI 17.2
[2023-05-20 06:33] LABS: % Basophils 0.1 % (0-2); % Eosinophils 0.7 % (0-6); % Lymphocytes 3.3 % (20.5-51.1); % Neutrophils 90.9 % (42.2-75.2); Absolute Eosinophils 0.1 10^3/uL (0-0.7); Absolute Immature Granulocytes 0.2 10^3/uL (0-0.05); Absolute Lymphocytes 0.3 10^3/uL (1.2-3.4); Absolute Monocytes 0.3 10^3/uL (0.1-0.6); Absolute Neutrophils 9.4 10^3/uL (1.4-6.5); Hematocrit 28.7 % (39.0-52.0); Hemoglobin 9.8 g/dL (13.0-18.0); Mean Corp Hgb Conc. 34.1 g/dL (33.0-37.0); Mean Corpuscular Volume 102.5 fL (80.0-94.0); Mean Platelet Volume 9.8 fL (7.4-10.4); Nucleated Red Blood Cells % 4.4 % (-); Platelet Count 223 10^3/uL (130-400); White Blood Cell Count 10.3 10^3/uL (4.8-10.8)
[2023-05-20 06:54] LABS: Blood Urea Nitrogen 87 mg/dl (9-20); Calcium 8.1 mg/dl (8.4-10.2); Carbon Dioxide 25 mmol/L (22-30); Chloride 104 mmol/L (98-107); Estimated Creatinine Clearance 19 ml/min; Glucose 121 mg/dl (70-99); Potassium 4.6 mmol/L (3.5-5.1); Sodium 132 mmol/L (135-145); eGFR 28.46
[2023-05-20 07:27] LABS: Glucose - Point of Care 139 mg/dl (70-99)
[2023-05-20] MEDS: NOVOLOG FLEXPEN-LOW RESISTANCE SC ×2 (07:28→11:47)
[2023-05-20 07:35] VITALS: BP 102/66
[2023-05-20] MEDS: LOPRESSOR 25 MG PO ×2 (07:50→20:44)
[2023-05-20] MEDS: LASIX 40 MG PO (07:50)
[2023-05-20] MEDS: PACERONE 200 MG PO (07:50)
[2023-05-20] MEDS: ELIQUIS 2.5 MG PO ×2 (07:50→20:44)
--- NOTE | 2023-05-20 10:10 | W.PN.CD ---
Addendum entered and electronically signed by Sony Peñaloza MD 05/20/23 10:59:
87 yo male with A fib with RVR. He feels weak overall and some palps. Exam with irrgegular rhythm, II/ systolic murmur at RUSB, no edema. Tele: A fib 100-110s.
Increase Toprol XL to 25mg bid for better rate control.
Continue amiodarone.
Tentative plan for D[facility] after 3 weeks uninterrupted eliquis.
Original Note:
Today's Communication / Plan
-
monitor afib rates with increased metoprolol
Impression / Plan
-
87 y/o male with MDS, chronic anemia, macular degeneration, glaucoma, CKD, AFIB on amiodarone and Eliquis, and HFpEF (improved CM), and chronic ferro who is here for evaluation of feeling short of breath with exertion today. He was found to be in
AF RVR and TTE is pending.
LUCIANO:
-echo this admit: Normal biventricular size and systolic function without regional wall motion abnormality. Estimated LVEF 55-60%. Asymmetric septal hypertrophy: IVS 1.5 cm, LVPW 1.0 cm. Mild/moderate mitral regurgitation.�Aortic sclerosis without
stenosis. Mild/moderate aortic regurgitation. Mild/moderate tricuspid regurgitation. Normal PASP. Stable.
-patient CXR and BNP okay
-patient with afib, which has been symptomatic in the past- plan as below
BLE edema:
-look better with elevation
-tubigrips ordered
HFpEF: chronic, stable
-continue lasix and monitor
AFIB RVR:
-rates still mildly elevated
-metoprolol started 25 mg once daily, now increased to BID- monitor response
-continue amiodarone
-continue Eliquis- missed a pill 1-2 weeks ago- Will have him prove at least 3 weeks of Eliquis compliance then can arrange CV as outpatient, would not recommend GLORIA in this frail man.��
Abnormal troponin:
-suspect non-ischemic myocardial injury (anemia, kidney disease, afib, infectious process)
UTI:
-patient recently reported being treated for a UTI. Management per internal medicine.
Anemia:
-similar to previous
-denies bleeding
Subjective:
-Patient continues to report back pain- better with repositioning
-He does still have some SOB
Physical Exam
Vital Signs/Labs
Vital Signs
Temp Pulse Resp BP Pulse Ox
97.8 F 104 20 102/66 97
05/20/23 07:35 05/20/23 07:35 05/20/23 07:35 05/20/23 07:35 05/20/23 07:35
05/19/23 05/20/23 05/21/23
06:59 06:59 06:59
Actual Weight 53.581 kg 54.488 kg
05/20/23 06:18
05/20/23 06:18
TSH 1.62 uIU/ml (0.47-4.68) 05/19/23 06:34
05/18/23
12:02
Kit-W-Sfinsuguxux Pept 944
LAB Results
05/18/23 05/18/23 05/19/23
12:02 17:59 00:39
Troponin I 0.049 H* 0.102 H* D 0.096 H*
05/19/23
06:34
Troponin I 0.085 H*
Physical Exam
Constitutional: No acute distress
EENT: Anicteric
Cardiovascular: Rhythm/rate is irregular
Respiratory: Respiratory effort normal and Lungs clear to auscul.
Neuro/Psych: AO x 3
Other: Skin (warm and dry)
Data Reviewed
-
Date of Service: May 20, 2023
EKG: Other (tele AFIB- 100-110 generally)
[2023-05-20 11:19] VITALS: BP 90/58
[2023-05-20 11:44] LABS: Glucose - Point of Care 143 mg/dl (70-99)
--- NOTE | 2023-05-20 12:00 | W.PN.HOSP.TC ---
Today's Communication/Plan
-
Continue metoprolol
Fluid restriction
PT/OT
Discharge planning
Assessment / Plan
Assessment / Plan
Gen-AAOx3, NAD
HEENT-NC, AT, anicteric, clear oral mm
Neck-supple
CV-reg, no M, +S1/S2
Lungs-clear B/L
Abd-soft, NT, ND
Ext-no edema
Musculoskeletal-no cyanosis, clubbing
Skin-warm and dry
Neuro-grossly non-focal
Psych-calm, cooperative
Acute hypoxic respiratory insufficiency - possibly due to rapid atrial fibrillation.� Oxygenation normal on room air.
Paroxysmal atrial fibrillation with RVR -continue Eliquis, amiodarone, metoprolol. TSH normal. Ideally would increase Metoprolol dose, but BP running low.
Elevated troponin -suspect non-[place] troponin elevation due to acute illness. Troponins have peaked.
Hyponatremia - Sodium 132. Mild fluid restriction.
DM2 with hyperglycemia -new diagnosis of diabetes. Hemoglobin A1c 6.5%. Would manage with diet alone given his frailty and age. Glucose 121 this morning.
Subacute bilateral sacral fractures - suspect traumatic and due to fall and underlying osteoporosis.� Has had multiple falls in the past.� Fractures confirmed by lumbar MRI performed 05/12/2023. I spoke with spine surgery Dr. Dereje Devries, he does not
recommend surgical intervention.� Recommends medical management, consideration of IR consult. I spoke with Dr. Schafer from IR department, he will ask his colleagues whether or not they are able to consider sacroplasty.
Patient was started on prednisone prior to admission for his sacral pain due to the fracture, discontinued after admission due to inefficacy.
Myelodysplastic syndrome -followed by [facility].
BPH/chronic urinary retention -Womack catheter dependent.� Patient states catheter was just changed a couple days ago.� Visiting nurse noted dark sediment in the bag and a urinalysis was sent which reportedly suggested a UTI.� Culture results not
available.� Patient was started on Bactrim single strength twice daily on May 15 prior to admission. He denied any UTI symptoms at that at the time and therefore I am not certain that this represents a true infection.� Urinalysis done here does
not show pyuria. Does show RBCs and blood, moderate bacteria. Urine culture in the hospital shows diphtheroids. No indication for antibiotics currently.
Chronic heart failure preserved EF -appears to be volume overloaded with bilateral lower extremity edema.� Chest x-ray however read as clear.� I hear no rales on exam.� BNP 944.� Continue oral Lasix. Echocardiogram shows LVEF 55 to 60%, mild to
moderate MR, mild to moderate AR, mild to moderate TR.
CKD stage IV -stable.
Heterozygous hemochromatosis
Macular degeneration, nonexudative
Colon polyp/diverticulosis
DNR -confirmed with patient.
Ambulatory dysfunction -continue PT/OT.
Dispo -ideally needs SNF placement but patient hesitant and wants to go home to take care of his elderly . I explained to him that if he cannot take care of himself, he will not be able to take care of his . Social work consulted.
Anticipated Discharge: > 48 hours
Subjective/Interval History
-
Date of Service: May 20, 2023
Patient seen/examined, no new complaints.
Objective Data
-
Labs:
Laboratory Results
05/20/23
06:18
WBC 10.3
Hgb 9.8 L
Hct 28.7 L
Plt Count 223
Sodium 132 L
Potassium 4.6
Chloride 104
Carbon Dioxide 25
BUN 87 H
Creatinine 2.2 H
Glucose 121 H
Calcium 8.1 L
Vital Signs:
Vital Signs
Temp Pulse Resp BP Pulse Ox
97.6 F 105 20 90/58 97
05/20/23 11:19 05/20/23 11:19 05/20/23 11:19 05/20/23 11:19 05/20/23 11:26
I&O
05/19/23 05/20/23 05/21/23
06:59 06:59 06:59
Intake Total 475 / 475 660 / 660
Output Total 1999 1150 / 1150
Balance -1525 / -1525 -490 / -490
Review of Systems
-
History Source: Patient
All other systems: Reviewed and negative
[2023-05-20 15:13] VITALS: BP 129/68
[2023-05-20 16:39] LABS: Glucose - Point of Care 155 mg/dl (70-99)
[2023-05-20] MEDS: NOVOLOG FLEXPEN-LOW RESISTANCE 1 UNITS SC (16:40)
[2023-05-20 19:55] VITALS: BP 98/67
[2023-05-20] MEDS: TYLENOL 650 MG PO (20:44)
[2023-05-20 21:40] LABS: Glucose - Point of Care 212 mg/dl (70-99)
[2023-05-20 23:58] VITALS: BP 108/66
[2023-05-21] VITALS (7 sets, daily range): BP systolic 89–133; BP diastolic 52–92; BMI 17.1
[2023-05-21] MEDS: PERCOCET 5/325 1 TABLET PO (01:54)
--- NOTE | 2023-05-21 06:40 | PTCARENOTE ---
Pt went into Vtach- (100 continuous beats) ad converted back into afib. Pt complaining of spasms but AAOx3- VSS- Notified [facility]- labs added. Tele strip in chart
[2023-05-21 06:44] LABS: % Basophils 0.2 % (0-2); % Eosinophils 1.4 % (0-6); % Immature Granulocytes 1.9 % (0-0.5); % Lymphocytes 5.7 % (20.5-51.1); % Neutrophils 86.8 % (42.2-75.2); Absolute Eosinophils 0.1 10^3/uL (0-0.7); Absolute Immature Granulocytes 0.2 10^3/uL (0-0.05); Absolute Lymphocytes 0.6 10^3/uL (1.2-3.4); Absolute Monocytes 0.4 10^3/uL (0.1-0.6); Absolute Neutrophils 8.9 10^3/uL (1.4-6.5); Mean Corp Hgb Conc. 33.3 g/dL (33.0-37.0); Mean Corpuscular Hgb 35.1 pg (27.0-31.0); Mean Corpuscular Volume 105.3 fL (80.0-94.0); Nucleated Red Blood Cells % 4.1 % (-); Platelet Count 224 10^3/uL (130-400); Red Blood Cell Count 2.85 10^6/uL (4.70-6.10); Red Cell Dist. Width 24.5 % (11.5-14.5); White Blood Cell Count 10.2 10^3/uL (4.8-10.8)
[2023-05-21 06:54] LABS: Troponin I 0.037 ng/ml
[2023-05-21 07:04] LABS: Blood Urea Nitrogen 95 mg/dl (9-20); Calcium 8.4 mg/dl (8.4-10.2); Carbon Dioxide 29 mmol/L (22-30); Chloride 101 mmol/L (98-107); Estimated Creatinine Clearance 18 ml/min; Glucose 126 mg/dl (70-99); Magnesium 2.4 mg/dl (1.6-2.3); Potassium 4.9 mmol/L (3.5-5.1); Sodium 134 mmol/L (135-145); eGFR 28.46
[2023-05-21 07:33] LABS: Glucose - Point of Care 146 mg/dl (70-99)
[2023-05-21] MEDS: NOVOLOG FLEXPEN-LOW RESISTANCE SC ×2 (07:44→11:09)
[2023-05-21] MEDS: LOPRESSOR 25 MG PO (08:17)
[2023-05-21] MEDS: LASIX 40 MG PO (08:18)
[2023-05-21] MEDS: ELIQUIS 2.5 MG PO ×2 (08:18→20:54)
[2023-05-21] MEDS: PACERONE 200 MG PO (08:18)
--- NOTE | 2023-05-21 09:59 | W.PN.HOSP.TC ---
Today's Communication/Plan
-
Flomax
Pyridium
Orthostatics
Assessment / Plan
Assessment / Plan
Gen-AAOx3, NAD
HEENT-NC, AT, anicteric, clear oral mm
Neck-supple
CV-reg, no M, +S1/S2
Lungs-clear B/L
Abd-soft, NT, ND
Ext-no edema
Musculoskeletal-no cyanosis, clubbing
Skin-warm and dry
Neuro-grossly non-focal
Psych-calm, cooperative
Acute hypoxic respiratory insufficiency - possibly due to rapid atrial fibrillation.� Oxygenation normal on room air.
Paroxysmal atrial fibrillation with RVR -continue Eliquis, amiodarone, metoprolol. TSH normal. Rates still relatively fast. Can increase metoprolol dose. Monitor for hypotension.
Elevated troponin -suspect non-[place] troponin elevation due to acute illness. Troponins have peaked.
Hyponatremia - Sodium 134. Mild fluid restriction.
DM2 with hyperglycemia -new diagnosis of diabetes. Hemoglobin A1c 6.5%. Would manage with diet alone given his frailty and age. Glucose 126 this morning.
Subacute bilateral sacral fractures - suspect traumatic and due to fall and underlying osteoporosis.� Has had multiple falls in the past.� Fractures confirmed by lumbar MRI performed 05/12/2023. I spoke with spine surgery Dr. Dereje Devries, he does not
recommend surgical intervention.� Recommends medical management, consideration of IR consult. I spoke with Dr. Schafer from IR department, he will ask his colleagues whether or not they are able to consider sacroplasty.
Patient was started on prednisone prior to admission for his sacral pain due to the fracture, discontinued after admission due to inefficacy.
Myelodysplastic syndrome -followed by [facility].
BPH/chronic urinary retention -Womack catheter dependent.� Patient states catheter was just changed a couple days ago.� Visiting nurse noted dark sediment in the bag and a urinalysis was sent which reportedly suggested a UTI.� Culture results not
available.� Patient was started on Bactrim single strength twice daily on February 5 prior to admission. He denied any UTI symptoms at that at the time and therefore I am not certain that this represents a true infection.� Urinalysis done here does
not show pyuria. Does show RBCs and blood, moderate bacteria. Urine culture in the hospital shows diphtheroids. No indication for antibiotics currently.
Add Flomax, Pyridium.
Chronic heart failure preserved EF -appears to be volume overloaded with bilateral lower extremity edema.� Chest x-ray however read as clear.� I hear no rales on exam.� BNP 944.� Continue oral Lasix. Echocardiogram shows LVEF 55 to 60%, mild to
moderate MR, mild to moderate AR, mild to moderate TR.
CKD stage IV -stable.
Heterozygous hemochromatosis
Macular degeneration, nonexudative
Colon polyp/diverticulosis
DNR -confirmed with patient.
Ambulatory dysfunction -continue PT/OT.
Dispo -ideally needs SNF placement but patient hesitant and wants to go home to take care of his elderly . I explained to him that if he cannot take care of himself, he will not be able to take care of his . Social work consulted.
Anticipated Discharge: Within 24 hours
Subjective/Interval History
-
Date of Service: May 21, 2023
Patient seen and examined. Complaining of penile pain with urination. Complaining of lightheadedness.
Objective Data
-
Labs:
Laboratory Results
05/21/23
06:20
WBC 10.2
Hgb 10.0 L
Hct 30.0 L
Plt Count 224
Sodium 134 L
Potassium 4.9
Chloride 101
Carbon Dioxide 29
BUN 95 H
Creatinine 2.2 H
Glucose 126 H
Calcium 8.4
Vital Signs:
Vital Signs
Temp Pulse Resp BP Pulse Ox
98 F 111 22 131/92 97
05/21/23 07:20 05/21/23 08:17 05/21/23 07:20 05/21/23 07:20 05/21/23 07:20
I&O
05/20/23 05/21/23 05/22/23
06:59 06:59 06:59
Intake Total 660 / 660 660 / 660
Output Total 1150 / 1150 1200 / 1200
Balance -490 / -490 -540 / -540
Review of Systems
-
History Source: Patient
All other systems: Reviewed and negative
[2023-05-21] MEDS: FLOMAX 0.400000000000000022 MG PO (10:11)
[2023-05-21] MEDS: TYLENOL 650 MG PO ×2 (11:07→21:51)
[2023-05-21 11:09] LABS: Glucose - Point of Care 141 mg/dl (70-99)
--- NOTE | 2023-05-21 13:21 | W.PN.CD ---
Today's Communication / Plan
-
increase metoprolol: Toprol XL 50mg bid, hold for SBP under 90
Impression / Plan
-
87 y/o male with MDS, chronic anemia, macular degeneration, glaucoma, CKD, AFIB on amiodarone and Eliquis, and HFpEF (improved CM), and chronic ferro who is here for evaluation of feeling short of breath with exertion today. He was found to be in
AF RVR and TTE is pending.
LUCIANO:
-echo this admit: Normal biventricular size and systolic function without regional wall motion abnormality. Estimated LVEF 55-60%. Asymmetric septal hypertrophy: IVS 1.5 cm, LVPW 1.0 cm. Mild/moderate mitral regurgitation.�Aortic sclerosis without
stenosis. Mild/moderate aortic regurgitation. Mild/moderate tricuspid regurgitation. Normal PASP. Stable.
-patient CXR and BNP okay
-patient with afib, which has been symptomatic in the past- plan as below
BLE edema:
-look better with elevation
-tubigrips ordered
HFpEF: chronic, stable
-continue PO lasix and monitor
AFIB RVR:
-rates still elevated
-increase metoprolol: Toprol XL 50mg bid, hold for SBP under 90
-continue amiodarone
-continue Eliquis- missed a pill 1-2 weeks ago- Will have him prove at least 3 weeks of Eliquis compliance then can arrange CV as outpatient, would not recommend GLORIA in this frail man.��
Abnormal troponin:
-suspect non-ischemic myocardial injury (anemia, kidney disease, afib, infectious process)
UTI:
-patient recently reported being treated for a UTI. Management per internal medicine.
Anemia:
-similar to previous
-denies bleeding
Subjective:
He feels weak with occasional palps.
Physical Exam
Vital Signs/Labs
Vital Signs
Temp Pulse Resp BP Pulse Ox
97.5 F 101 20 108/63 98
05/21/23 11:05 05/21/23 11:05 05/21/23 11:05 05/21/23 11:05 05/21/23 11:05
05/20/23 05/21/23 05/22/23
06:59 06:59 06:59
Actual Weight 54.488 kg 54.034 kg
05/21/23 06:20
05/21/23 06:20
Magnesium 2.4 mg/dl (1.6-2.3) H 05/21/23 06:20
TSH 1.62 uIU/ml (0.47-4.68) 05/19/23 06:34
05/18/23
12:02
Uuo-C-Nzwzyannjxc Pept 944
LAB Results
05/18/23 05/19/23 05/19/23
17:59 00:39 06:34
Troponin I 0.102 H* D 0.096 H* 0.085 H*
05/21/23
06:21
Troponin I 0.037 H*
Physical Exam
Constitutional: No acute distress
EENT: Moist mucous membranes
Cardiovascular: Pedal edema is absent, JVD pressure is normal, Rhythm/rate is irregular and Systolic murmur present
Respiratory: Respiratory effort normal and Lungs clear to auscul.
Neuro/Psych: Oriented
Data Reviewed
-
Date of Service: May 21, 2023
EKG: Other (Tele: A fib, avg HR 100-110)
[2023-05-21 16:40] LABS: Glucose - Point of Care 151 mg/dl (70-99)
[2023-05-21] MEDS: NOVOLOG FLEXPEN-LOW RESISTANCE 1 UNITS SC (17:04)
[2023-05-21] MEDS: TOPROL XL 50 MG PO (20:54)
[2023-05-21 21:09] LABS: Glucose - Point of Care 158 mg/dl (70-99)
[2023-05-22] VITALS (7 sets, daily range): BP systolic 80–100; BP diastolic 52–64; PULSE 85; O2SAT 100; BMI 17.0
[2023-05-22] MEDS: LASIX PO ×2 (07:35→08:13)
[2023-05-22] MEDS: PACERONE 200 MG PO (07:35)
[2023-05-22] MEDS: FLOMAX 0.400000000000000022 MG PO (07:35)
[2023-05-22] MEDS: ELIQUIS 2.5 MG PO ×2 (07:35→20:47)
[2023-05-22] MEDS: Pyridium 100 MG PO ×2 (07:35→16:23)
[2023-05-22] MEDS: TOPROL XL 50 MG PO ×2 (07:36→20:46)
[2023-05-22] MEDS: TYLENOL 650 MG PO ×3 (07:36→20:46)
[2023-05-22 07:46] LABS: Glucose - Point of Care 129 mg/dl (70-99)
[2023-05-22] MEDS: NOVOLOG FLEXPEN-LOW RESISTANCE SC ×3 (07:46→16:25)
[2023-05-22 07:55] LABS: Blood Urea Nitrogen 100 mg/dl (9-20); Calcium 8.2 mg/dl (8.4-10.2); Carbon Dioxide 27 mmol/L (22-30); Chloride 104 mmol/L (98-107); Estimated Creatinine Clearance 16 ml/min; Glucose 120 mg/dl (70-99); Potassium 5.1 mmol/L (3.5-5.1); Sodium 133 mmol/L (135-145); eGFR 24.41
--- NOTE | 2023-05-22 08:55 | W.PN.CD ---
Today's Communication / Plan
-
continue metoprolol
hold lasix
encourage po intatke
oob to chair when able
pain control
Impression / Plan
-
87 y/o male with MDS, chronic anemia, macular degeneration, glaucoma, CKD, AFIB on amiodarone and Eliquis, and HFpEF (improved CM), and chronic ferro who is here for evaluation of feeling short of breath with exertion today. He was found to be in
AF RVR and TTE is pending.
LUCIANO:
-echo this admit: Normal biventricular size and systolic function without regional wall motion abnormality. Estimated LVEF 55-60%. Asymmetric septal hypertrophy: IVS 1.5 cm, LVPW 1.0 cm. Mild/moderate mitral regurgitation.�Aortic sclerosis without
stenosis. Mild/moderate aortic regurgitation. Mild/moderate tricuspid regurgitation. Normal PASP. Stable.
-patient CXR and BNP okay
-patient with afib, which has been symptomatic in the past- plan as below
-he seems sob while awake but then perfectly comfortable while sleeping, I suspect it is driven by pain.
BLE edema:
-improve
-tubigrips on
HFpEF: chronic, stable
-Cr elevated today will hold lasix, encourage po intake tody
AFIB RVR:
-rates still elevated
-continue current metoprolol: Toprol XL 50mg bid, hold for SBP under 90
-continue amiodarone
-continue Eliquis- missed a pill 1-2 weeks ago- Will have him prove at least 3 weeks of Eliquis compliance then can arrange CV as outpatient, would not recommend GLORIA in this frail man.��
Acute on chronic kidney failure:
-will hold lasix today and encourage po intake
Abnormal troponin:
-suspect non-ischemic myocardial injury (anemia, kidney disease, afib, infectious process)
-echo without change
UTI:
-patient recently reported being treated for a UTI. Management per internal medicine.
Anemia:
-similar to previous
-denies bleeding
Subjective:
He is so tired, he cannot sleep here. He has intense penile spasm currently, yelling in pain.
TTE: 05/19/23
�Normal biventricular size and systolic function without regional wall motion
�abnormality. Estimated LVEF 55-60%.
�Asymmetric septal hypertrophy: IVS 1.5 cm, LVPW 1.0 cm.
�Mild/moderate mitral regurgitation.
�Aortic sclerosis without stenosis. Mild/moderate aortic regurgitation.
�Mild/moderate tricuspid regurgitation. Normal PASP.
�
�Compared to 07/22/22: no significant change.
Physical Exam
Vital Signs/Labs
Vital Signs
Temp Pulse Resp BP Pulse Ox
97.5 F 76 18 94/57 96
05/22/23 07:00 05/22/23 07:00 05/22/23 07:00 05/22/23 07:00 05/22/23 07:49
05/21/23 05/22/23 05/23/23
06:59 06:59 06:59
Actual Weight 54.034 kg 53.666 kg
05/21/23 06:20
05/22/23 07:18
Magnesium 2.4 mg/dl (1.6-2.3) H 05/21/23 06:20
TSH 1.62 uIU/ml (0.47-4.68) 05/19/23 06:34
05/18/23
12:02
Nej-R-Xvazqpcpqgt Pept 944
LAB Results
05/21/23
06:21
Troponin I 0.037 H*
Physical Exam
Constitutional: No acute distress
Cardiovascular: JVD pressure is normal, Systolic murmur absent, Diastolic murmur absent, Rhythm/rate is irregular and Pedal edema present (trace, tubigrips on )
Respiratory: Respiratory effort normal, Lungs clear to auscul., Wheeze Absent, Crackles Absent and Rhonchi Absent
GI: Soft
Neuro/Psych: AO x 3
Data Reviewed
-
Date of Service: May 22, 2023
EKG: Other (tele rates reasonable on tele in afib)
[2023-05-22] MEDS: TYLENOL PO ×2 (09:04→16:16)
--- NOTE | 2023-05-22 11:28 | CM ---
Patient seen bedside, patient requesting CM to come back as patient is extremely tired and does not wish to speak right now. CM will continue to follow for discharge planning needs, CM will return to discuss SNF with patient.
Plan; discuss SNF with patient, per previous notes, pt wishes to return home with .
--- NOTE | 2023-05-22 11:41 | W.PN.HOSP.TC ---
Today's Communication/Plan
-
hold lasix
IVF mild
encourage po intake
pt/ot
oob pain control
Assessment / Plan
Assessment / Plan
Gen-AAOx3, NAD
HEENT-NC, AT, anicteric, clear oral mm
Neck-supple
CV-reg, no M, +S1/S2
Lungs-clear B/L
Abd-soft, NT, ND
Ext-no edema
Musculoskeletal-no cyanosis, clubbing
Skin-warm and dry
Neuro-grossly non-focal
Psych-calm, cooperative
-ferro dark michaelle color urine
Acute hypoxic respiratory insufficiency - possibly due to rapid atrial fibrillation.� Oxygenation normal on room air.
Paroxysmal atrial fibrillation with RVR -continue Eliquis, amiodarone, metoprolol. TSH normal. Rates still relatively fast. Can increase metoprolol dose. Monitor for hypotension.
Elevated troponin -suspect non-CO troponin elevation due to acute illness. Troponins have peaked.
Hyponatremia - Sodium 134. Mild fluid restriction.
DM2 with hyperglycemia -new diagnosis of diabetes. Hemoglobin A1c 6.5%. Would manage with diet alone given his frailty and age. Glucose 129 this morning.
Subacute bilateral sacral fractures - suspect traumatic and due to fall and underlying osteoporosis.� Has had multiple falls in the past.� Fractures confirmed by lumbar MRI performed 05/12/2023. Dr. Hagen spoke with spine surgery Dr. Dereje Devries, he does
not recommend surgical intervention.� Recommends medical management, consideration of IR consult. Patient was started on prednisone prior to admission for his sacral pain due to the fracture, discontinued after admission due to inefficacy. Pain
control but due to his mentation/BP wont be able to tolerate much narcs.
Myelodysplastic syndrome -followed by [facility].
BPH/chronic urinary retention -Ferro catheter dependent.� Patient states catheter was just changed a couple days ago.� Visiting nurse noted dark sediment in the bag and a urinalysis was sent which reportedly suggested a UTI.� Culture results not
available.� Patient was started on Bactrim single strength twice daily on May 15 prior to admission. � Urinalysis done here does not show pyuria. Does show RBCs and blood, moderate bacteria. Urine culture in the hospital shows diphtheroids.
No indication for antibiotics currently.
Add Flomax, Pyridium.
Chronic heart failure preserved EF -appears to be volume overloaded with bilateral lower extremity edema.� Chest x-ray however read as clear.� BNP 944.� chocardiogram shows LVEF 55 to 60%, mild to moderate MR, mild to moderate AR, mild to moderate
TR. Hold lasix for today. Cr slowly uptrending and not eating much.
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 gentle IVF.
Heterozygous hemochromatosis
Macular degeneration, nonexudative
Colon polyp/diverticulosis
DNR -confirmed with patient.
Ambulatory dysfunction -continue PT/OT.
Dispo -probably will benefit from SNF.
Anticipated Discharge: > 48 hours
Subjective/Interval History
-
Date of Service: May 22, 2023
States wants to go back to sleep
not eating much
Objective Data
-
Labs:
Laboratory Results
05/22/23
07:18
Sodium 133 L
Potassium 5.1
Chloride 104
Carbon Dioxide 27
BUN 100 H
Creatinine 2.5 H
Glucose 120 H
Calcium 8.2 L
Vital Signs:
Vital Signs
Temp Pulse Resp BP Pulse Ox
97.7 F 99 18 96/64 98
05/22/23 11:00 05/22/23 11:00 05/22/23 11:00 05/22/23 11:00 05/22/23 11:00
I&O
05/21/23 05/22/23 05/23/23
06:59 06:59 06:59
Intake Total 660 / 660 540 / 540
Output Total 1200 / 1200 950 / 950
Balance -540 / -540 -410 / -410
Data Reviewed
-
Total Time Spent with Patient (in minutes): 54
[2023-05-22] MEDS: NSS 500 IV (12:10)
[2023-05-22 12:18] LABS: Glucose - Point of Care 124 mg/dl (70-99)
[2023-05-22] MEDS: PERCOCET 5/325 1 TABLET PO (16:23)
[2023-05-22 16:25] LABS: Glucose - Point of Care 142 mg/dl (70-99)
[2023-05-22 21:16] LABS: Glucose - Point of Care 159 mg/dl (70-99)
[2023-05-23] VITALS (46 sets, daily range): BP systolic 75–116; BP diastolic 49–90; BMI 16.8
[2023-05-23] MEDS: TYLENOL PO ×3 (01:59→19:47)
[2023-05-23 08:01] LABS: Glucose - Point of Care 131 mg/dl (70-99)
[2023-05-23] MEDS: NOVOLOG FLEXPEN-LOW RESISTANCE SC ×3 (08:02→18:51)
[2023-05-23] MEDS: ProAmatine 10 MG PO (08:24)
[2023-05-23] MEDS: TYLENOL 650 MG PO ×3 (08:25→20:46)
[2023-05-23] MEDS: PACERONE 200 MG PO (08:25)
[2023-05-23] MEDS: FLOMAX 0.400000000000000022 MG PO (08:25)
[2023-05-23] MEDS: ELIQUIS 2.5 MG PO ×2 (08:25→20:46)
--- NOTE | 2023-05-23 09:07 | W.PN.CD ---
Today's Communication / Plan
-
-Lasix is being held due to low blood pressure and decreased PO intake.
-Heart rate is now fairly controlled.
-Continue Toprol XL 50 mg BID--hold for SBP under 90.
Impression / Plan
-
87 y/o male with MDS, chronic anemia, macular degeneration, glaucoma, CKD, AFIB on amiodarone and Eliquis, and HFpEF (improved CM), and chronic ferro who is here for evaluation of feeling short of breath with exertion today. He was found to be in
AF RVR.
LUCIANO:
-echo this admit: Normal biventricular size and systolic function without regional wall motion abnormality. Estimated LVEF 55-60%. Asymmetric septal hypertrophy: IVS 1.5 cm, LVPW 1.0 cm. Mild/moderate mitral regurgitation.�Aortic sclerosis without
stenosis. Mild/moderate aortic regurgitation. Mild/moderate tricuspid regurgitation. Normal PASP. Stable.
-patient CXR and BNP okay
HFpEF: chronic, stable
-Lasix is being held due to low blood pressure and decreased PO intake.
AFIB RVR:
-Heart rate is now fairly controlled.
-Continue Toprol XL 50 mg BID--hold for SBP under 90.
-continue amiodarone
-continue Eliquis- missed a pill 1-2 weeks ago- Will have him prove at least 3 weeks of Eliquis compliance then can arrange CV as outpatient, would not recommend GLORIA in this frail man.��
Acute on chronic kidney failure:
-Holding lasix; encourage PO intake.
Abnormal troponin:
-suspect acute non-ischemic myocardial injury (anemia, kidney disease, afib, infectious process)
-echo without change
UTI:
-patient recently reported being treated for a UTI. Management per internal medicine.
Anemia:
-similar to previous
-denies bleeding
Subjective:
No major cardiac events overnight.
TTE: 05/19/23
�Normal biventricular size and systolic function without regional wall motion
�abnormality. Estimated LVEF 55-60%.
�Asymmetric septal hypertrophy: IVS 1.5 cm, LVPW 1.0 cm.
�Mild/moderate mitral regurgitation.
�Aortic sclerosis without stenosis. Mild/moderate aortic regurgitation.
�Mild/moderate tricuspid regurgitation. Normal PASP.
�
�Compared to 07/22/22: no significant change.
Physical Exam
Vital Signs/Labs
Vital Signs
Temp Pulse Resp BP Pulse Ox
97.6 F 81 20 87/55 96
05/23/23 03:14 05/23/23 03:14 05/23/23 03:14 05/23/23 08:24 05/23/23 08:00
05/22/23 05/23/23 05/24/23
06:59 06:59 06:59
Actual Weight 53.666 kg 53.025 kg
05/21/23 06:20
Magnesium 2.4 mg/dl (1.6-2.3) H 05/21/23 06:20
TSH 1.62 uIU/ml (0.47-4.68) 05/19/23 06:34
05/18/23
12:02
[id number] Pept 944
LAB Results
05/21/23
06:21
Troponin I 0.037 H*
Physical Exam
Constitutional: No acute distress and Comfortable
EENT: Anicteric
Cardiovascular: Systolic murmur absent, Rhythm/rate is irregular, Pedal edema present (trace) and S1S2 is normal
Respiratory: Respiratory effort normal and Lungs clear to auscul.
GI: Soft
Neuro/Psych: AO x 3
Other: Skin (Warm, dry)
Data Reviewed
-
Date of Service: May 23, 2023
EKG: Tracing Personally Visualized and interpreted (Telemetry: A-fib @ 100-110 bpm)
Medical Tests (PFT, Pathology etc): Discussed with Patient
Labs: Labs Reviewed by me
[2023-05-23 09:12] LABS: Blood Urea Nitrogen 104 mg/dl (9-20); Calcium 8.1 mg/dl (8.4-10.2); Carbon Dioxide 22 mmol/L (22-30); Chloride 106 mmol/L (98-107); Estimated Creatinine Clearance 16 ml/min; Glucose 105 mg/dl (70-99); Potassium 5.4 mmol/L (3.5-5.1); Sodium 132 mmol/L (135-145); eGFR 24.41
[2023-05-23] MEDS: TOPROL XL PO (10:46)
--- NOTE | 2023-05-23 10:46 | W.PN.HOSP.TC ---
Addendum entered and electronically signed by Todd Seaman MD 05/23/23 14:12:
We evaluated the patient in IMU. Patient blood pressure responded to IV fluids with systolic blood pressure 97. Patient complaining of severe sacral pain. Will give trial of Dilaudid and avoid morphine in the setting of elevated creatinine.
Discussed with RN
No family at bedside
Addendum entered and electronically signed by Todd Seaman MD 05/23/23 10:58:
was able to get in touch with pateint son-explained to him in detail patient prognosis with severe hypotension, lightheadedness, dizziness, heart failure on presentation, kidney problem. Son is coming in and wants to discuss further once he is here
Hyperkalemia
Once blood pressure stabilized we will give dose of Lokelma.
Original Note:
Today's Communication/Plan
-
IVF bolus then maintenance
encourage po intake
hold Toprol/lasix
tx to IMU
Start pressors
start midodrine
Assessment / Plan
Assessment / Plan
Hypotension ?due to overdiuresis and decrease po intake-Will give IVF challenge 500cc. Started midodrine. Start pressors. Hold BP meds. afebrile.
Acute hypoxic respiratory insufficiency - possibly due to rapid atrial fibrillation.� Oxygenation normal on room air.
Paroxysmal atrial fibrillation with RVR -continue Eliquis, amiodarone, metoprolol. TSH normal. Rate controlled hold metoprolol in setting of hypotension
Elevated troponin -suspect non-MS troponin elevation due to acute illness. Troponins have peaked.
Hyponatremia - ?due to hypovolemia-IVF for now.
DM2 with hyperglycemia -new diagnosis of diabetes. Hemoglobin A1c 6.5%. Would manage with diet alone given his frailty and age.
Subacute bilateral sacral fractures - suspect traumatic and due to fall and underlying osteoporosis.� Has had multiple falls in the past.� Fractures confirmed by lumbar MRI performed 05/12/2023. Dr. Hagen spoke with spine surgery Dr. Dereje Devries, he does
not recommend surgical intervention.� Recommends medical management, consideration of IR consult. Patient was started on prednisone prior to admission for his sacral pain due to the fracture, discontinued after admission due to inefficacy. Pain
control but due to his mentation/BP wont be able to tolerate much narcs.
Myelodysplastic syndrome -followed by [facility].
BPH/chronic urinary retention -Ferro catheter dependent.� Patient states catheter was just changed a couple days ago.� Visiting nurse noted dark sediment in the bag and a urinalysis was sent which reportedly suggested a UTI.� Culture results not
available.� Patient was started on Bactrim single strength twice daily on May 15 prior to admission. � Urinalysis done here does not show pyuria. Does show RBCs and blood, moderate bacteria. Urine culture in the hospital shows diphtheroids.
No indication for antibiotics currently.
Add Flomax, Pyridium.
Chronic heart failure preserved EF -appears to be volume overloaded with bilateral lower extremity edema.� Chest x-ray however read as clear.� BNP 944.�Echocardiogram shows LVEF 55 to 60%, mild to moderate MR, mild to moderate AR, mild to moderate
TR. Hold lasix for today. Cr slowly uptrending and not eating much.
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 gentle IVF. Cr at 2.5 but BUN elevated. hypovolemic and will give IVF now monitor urine output.
Heterozygous hemochromatosis
Macular degeneration, nonexudative
Colon polyp/diverticulosis
DNR
Ambulatory dysfunction -continue PT/OT.
Dispo -probably will benefit from SNF.
called son x 2 to update but no response. left vm. Called spouse to update but no response.
Anticipated Discharge: > 48 hours
Subjective/Interval History
-
Date of Service: May 23, 2023
states of dry mouth
ferro with dark michaelle color urine
wants to drink water
feeling lightheaded
no chest pain or sob
on room air
BP was found to be low overnight
remains with poor appetite
Objective Data
-
Labs:
Laboratory Results
05/23/23
08:12
Sodium 132 L
Potassium 5.4 H
Chloride 106
Carbon Dioxide 22
BUN 104 H*
Creatinine 2.5 H
Glucose 105 H
Calcium 8.1 L
Vital Signs:
Vital Signs
Temp Pulse Resp BP Pulse Ox
97.7 F 76 18 77/55 96
05/23/23 07:45 05/23/23 07:45 05/23/23 07:45 05/23/23 10:43 05/23/23 08:00
I&O
05/22/23 05/23/23 05/24/23
06:59 06:59 06:59
Intake Total 540 / 540 1140 / 1140
Output Total 950 / 950 850 / 850
Balance -410 / -410 290 / 290
Physical Exam
-
General: Appears Chronically Ill and Cachectic
HEENT: Normocephalic, Atraumatic and Other (dry mouth )
Respiratory: Decreased Breath Sounds; Negative Wheezes or Rhonchi
Cardiac: S1/S2 and Irregular Rhythm; Negative Murmur
GI: Soft, Nontender, Nondistended and Normal Bowel Sounds
Genito-urinary: Ferro (dark michaelle color urine with some sediments )
Musculoskeletal: No Clubbing, No Cyanosis and No Edema
Neuro: Awake
Psych: Calm
Data Reviewed
-
Total Time Spent with Patient (in minutes): 65
[2023-05-23] MEDS: NSS 500 IV (10:48)
--- NOTE | 2023-05-23 11:51 | PTCARENOTE ---
BP this AM 87/55. Patient AAOx2 disoriented to time. Drowsy but arousable. Garbled speech at times. Dr Watkins made aware with orders to give STAT dose 10mg midodrine x1. Repeat blood pressure post midodrine is 77/55. Dr Watkins made aware with orders
to transfer to IMU. 500cc NSS bolus given as ordered. Repeat BP post IVF bolus is 87/59. Report called to Rosa M PACHECO. All belongings with patient.
[2023-05-23] MEDS: NSS 1000 IV (12:43)
[2023-05-23] MEDS: ProAmatine 5 MG PO ×2 (12:44→20:46)
[2023-05-23] MEDS: FLUSH (NSS) 1 FLUSH IV (12:44)
--- NOTE | 2023-05-23 12:50 | CM ---
CM reviewed chart, patient transfer to IMU.
Plan; dependent on patients medical needs.
--- NOTE | 2023-05-23 12:58 | PTCARENOTE ---
Received patient from 4th floor. Patient alert and oriented. BP on arrival 106/61(73) afib on monitor, hr 93,afebrile. Patient reports pain severe pain on his sacrum. Medicated with tylenol. IV fluids infusing as ordered. Will continue to
monitor.
[2023-05-23 13:05] LABS: Glucose - Point of Care 125 mg/dl (70-99)
[2023-05-23] MEDS: LOKELMA 10 GRAM PO (14:12)
[2023-05-23] MEDS: LEVOPHED 250 IV (15:47)
--- NOTE | 2023-05-23 15:53 | PTCARENOTE ---
Levophed started at 2mcg/7.5mls/hr. Titrate to keep MAP >65. Patient drowsy but arousable. Last BP 75/66(71) Womack catheter draining foul smelling michaelle urine with sediment.
[2023-05-23 16:46] LABS: Glucose - Point of Care 128 mg/dl (70-99)
[2023-05-23 20:30] LABS: Glucose - Point of Care 233 mg/dl (70-99)
[2023-05-23] MEDS: PERCOCET 5/325 1 TABLET PO (21:56)
--- NOTE | 2023-05-23 23:45 | PTCARENOTE ---
Addendum entered by Bonnie Campos RN 05/24/23 05:27:
Levo infusion stopped. Pt Womack output 350 with foul smelling red/orange/michaelle urine with sediment. Pt pleasant in insole tacker.
Original Note:
Assumed care of Pt from day RN. Pt on Levo 2mcg. During assessment pt was AAOx3 did not know month or day. Pt with episodes of yelling out calling his son and yelling at his cell phone. When trying to reorient and give emotional support Pt agitated
yelling at staff. Pt was grabbing Womack saying it was his dentures and later grabbing at Womack saying it was his phone geriatric assistant. Pt stating he was in pain in hips and back, PRN pain medication given. Through out the night Pt had more uncooperative
episodes with some confusion, when asked where he was Pt was able to say [facility]. Assessment care and vitals as charted.
[2023-05-24] VITALS (30 sets, daily range): BP systolic 81–125; BP diastolic 60–85; BMI 17.4
[2023-05-24] MEDS: NSS 1000 IV (02:00)
[2023-05-24] MEDS: TYLENOL 650 MG PO ×3 (03:16→13:20)
[2023-05-24] MEDS: PERCOCET 5/325 1 TABLET PO ×3 (03:16→19:36)
[2023-05-24 03:45] LABS: % Basophils 0.1 % (0-2); % Eosinophils 1.3 % (0-6); % Lymphocytes 10.2 % (20.5-51.1); % Monocytes 2.6 % (1.7-9.3); % Neutrophils 83.8 % (42.2-75.2); Absolute Eosinophils 0.1 10^3/uL (0-0.7); Absolute Immature Granulocytes 0.2 10^3/uL (0-0.05); Absolute Lymphocytes 0.8 10^3/uL (1.2-3.4); Absolute Monocytes 0.2 10^3/uL (0.1-0.6); Absolute Neutrophils 6.6 10^3/uL (1.4-6.5); Hematocrit 29.2 % (39.0-52.0); Hemoglobin 9.4 g/dL (13.0-18.0); Mean Corp Hgb Conc. 32.2 g/dL (33.0-37.0); Mean Corpuscular Hgb 35.1 pg (27.0-31.0); Mean Platelet Volume 10.2 fL (7.4-10.4); Platelet Count 219 10^3/uL (130-400); Red Blood Cell Count 2.68 10^6/uL (4.70-6.10); Red Cell Dist. Width 25.8 % (11.5-14.5); White Blood Cell Count 7.9 10^3/uL (4.8-10.8)
[2023-05-24 04:21] LABS: Blood Urea Nitrogen 104 mg/dl (9-20); Estimated Creatinine Clearance 15 ml/min; Glucose 111 mg/dl (70-99)
[2023-05-24 04:22] LABS: Calcium 7.7 mg/dl (8.4-10.2); Carbon Dioxide 22 mmol/L (22-30); Chloride 111 mmol/L (98-107); Sodium 135 mmol/L (135-145); eGFR 22.26
[2023-05-24 04:29] LABS: Potassium 5.1 mmol/L (3.5-5.1)
[2023-05-24 04:50] LABS: Cortisol, Random 22.9 ug/dl; TSH Reflex To Free T4 3.18 uIU/ml (0.47-4.68)
[2023-05-24] MEDS: NOVOLOG FLEXPEN-LOW RESISTANCE SC ×3 (08:20→18:45)
[2023-05-24 08:30] LABS: Glucose - Point of Care 144 mg/dl (70-99)
--- NOTE | 2023-05-24 09:15 | PTCARENOTE ---
Patient received from [facility]. Patient currently asleep but arousable and alert with garbled speech. VSS off Levophed, midodrine to be given. A-fib on tele. Patient restless in bed, complaints of sacral pain and bladder spasm, see MAR.
Medications given with applesauce. Call garsia in reach.
Asked patient if he would like me to order breakfast, he refused. Hospitalist aware of patients poor appetite.
[2023-05-24] MEDS: PACERONE 200 MG PO (09:20)
[2023-05-24] MEDS: ProAmatine 5 MG PO ×3 (09:20→19:37)
[2023-05-24] MEDS: ELIQUIS 2.5 MG PO (09:20)
[2023-05-24] MEDS: FLOMAX 0.400000000000000022 MG PO (09:20)
[2023-05-24] MEDS: Pyridium 100 MG PO (09:44)
[2023-05-24] MEDS: COMPAZINE 5 MG IV (13:21)
[2023-05-24 13:23] LABS: Glucose - Point of Care 119 mg/dl (70-99)
--- NOTE | 2023-05-24 13:43 | W.PN.CD ---
Addendum entered and electronically signed by Krystian Michelle MD 05/24/23 14:56:
I saw and examined the patient.
The WINDOWS MOBILE DEVELOPER's note was reviewed and I agree with the note.
Comment: He is quite somnolent now, he won't participate in an interview. He has a normal RR. He has irreg irreg rate and rhythm. Normal respiratory signs in the anteriorly. le edema is resolved on the right and trace on the left with tubigrips.
Cr and BUN rising. Agree with outlined interventions. Rates are controlled despite no bb, and improved with fluid. Continue to hold lasix. Encourage po intake although with mental status doubt this will be adequate. HE IS FAILING TO THRIVE.
Agree that hospice is a reasonable consideration.
Original Note:
Today's Communication / Plan
-
-continue amiodarone and Eliquis. Follow telemetry, monitor rates.
-follow volume as Lasix is held. Follow BP now that off IV pressors and on midodrine.
Impression / Plan
-
87 y/o male with MDS, chronic anemia, macular degeneration, glaucoma, CKD, AFIB on amiodarone and Eliquis, and HFpEF (improved CM), and chronic ferro who is here for evaluation of feeling short of breath with exertion. He was found to be in AF RVR.
LUCIANO:
-echo this admit: Normal biventricular size and systolic function without regional wall motion abnormality. Estimated LVEF 55-60%. Asymmetric septal hypertrophy: IVS 1.5 cm, LVPW 1.0 cm. Mild/moderate mitral regurgitation.�Aortic sclerosis without
stenosis. Mild/moderate aortic regurgitation. Mild/moderate tricuspid regurgitation. Normal PASP. Stable.
-patient CXR and BNP okay
HFpEF: chronic, stable
-Lasix is being held due to low blood pressure and decreased PO intake.
-follow volume
AFIB RVR:
-Heart rate remains fairly controlled, despite held metoprolol for hypotension requiring pressors. He is now off pressors. Nursing giving midodrine now.
-continue amiodarone, resume metoprolol when able
-continue Eliquis
Acute on chronic kidney failure:
-Holding lasix; encourage PO intake.
Abnormal troponin:
-suspect acute non-ischemic myocardial injury (anemia, kidney disease, afib, infectious process)
-echo without change
UTI:
-patient recently reported being treated for a UTI. Management per internal medicine.
Anemia:
-similar to previous
Hypotension:
-required fluids and pressors, which have been off since early this AM
-now on midodrine
Subjective:
Patient is tired. I asked if he was short of breath and he told me I am asking too may questions. He got Percocet this AM for pain.
TTE: 05/19/23
�Normal biventricular size and systolic function without regional wall motion
�abnormality. Estimated LVEF 55-60%.
�Asymmetric septal hypertrophy: IVS 1.5 cm, LVPW 1.0 cm.
�Mild/moderate mitral regurgitation.
�Aortic sclerosis without stenosis. Mild/moderate aortic regurgitation.
�Mild/moderate tricuspid regurgitation. Normal PASP.
�
�Compared to 07/22/22: no significant change.
Physical Exam
Vital Signs/Labs
Vital Signs
Temp Pulse Resp BP Pulse Ox
96.4 F L 95 29 111/69 99
05/24/23 11:58 05/24/23 13:21 05/24/23 13:11 05/24/23 13:21 05/24/23 13:11
05/23/23 05/24/23 05/25/23
06:59 06:59 06:59
Actual Weight 53.025 kg 55 kg
05/24/23 03:34
05/24/23 03:34
Magnesium 2.4 mg/dl (1.6-2.3) H 05/21/23 06:20
TSH 1.62 uIU/ml (0.47-4.68) 05/19/23 06:34
05/18/23
12:02
[id number] Pept 944
Physical Exam
Constitutional: No acute distress
EENT: Anicteric
Cardiovascular: Rhythm/rate is irregular
Respiratory: Respiratory effort normal and Lungs clear to auscul.
Neuro/Psych: Alert and Other (fatigued)
Data Reviewed
-
Date of Service: May 24, 2023
EKG: Other (AFIB)
Labs: Labs Reviewed by me
--- NOTE | 2023-05-24 13:47 | W.PN.HOSP.TC ---
Today's Communication/Plan
-
Exchange ferro
Repeat UA and studies
encourage po intake
monitor BP
Assessment / Plan
Assessment / Plan
Hypotension ?due to overdiuresis and decrease po intake-s/p IVF leading to improvement in BP. Midodrine TID for now. off levophed this am. Afebrile.
LANE on CKD stage IV ?prerenal (dec po intake and recent diuresis vs. ATN (hypotension) -hold lasix. gentle IVF. Cr at 2.7 and and severely elevated BUN now. Exchange ferro (not done on admission) repeat UA and urine lytes ordered. Avoid
hypotension. Nephrology eval.
Acute hypoxic respiratory insufficiency - possibly due to rapid atrial fibrillation.� Oxygenation normal on room air.
Paroxysmal atrial fibrillation with RVR -continue Eliquis, amiodarone, metoprolol. TSH normal. Rate controlled hold metoprolol in setting of hypotension
Elevated troponin -suspect non-[place] troponin elevation due to acute illness. Troponins have peaked.
Hyponatremia - ?due to hypovolemia-IVF for now.
DM2 with hyperglycemia -new diagnosis of diabetes. Hemoglobin A1c 6.5%. Would manage with diet alone given his frailty and age.
Subacute bilateral sacral fractures - suspect traumatic and due to fall and underlying osteoporosis.� Has had multiple falls in the past.� Fractures confirmed by lumbar MRI performed 05/12/2023. Dr. Hagen spoke with spine surgery Dr. Dereje Devries, he does
not recommend surgical intervention.� Recommends medical management, consideration of IR consult. Patient was started on prednisone prior to admission for his sacral pain due to the fracture, discontinued after admission due to inefficacy. Pain
control but due to his mentation/BP wont be able to tolerate much narcs.
Myelodysplastic syndrome -followed by [facility].
BPH/chronic urinary retention -Ferro catheter dependent.� Patient was started on Bactrim single strength twice daily on May 15 prior to admission. � Urine culture in the hospital shows diphtheroids. No indication for antibiotics currently.
Added Flomax, Pyridium.
Chronic heart failure preserved EF -� BNP 944.�Echocardiogram shows LVEF 55 to 60%, mild to moderate MR, mild to moderate AR, mild to moderate TR. Hold lasix for today. Cr slowly uptrending and not eating much.
Heterozygous hemochromatosis
Macular degeneration, nonexudative
Colon polyp/diverticulosis
Mild hyperkalemia-s/p lokelma and K normalized.
DNR
Ambulatory dysfunction -continue PT/OT.
Dispo -probably will benefit from SNF.
updated son over the phone in details on 05/23 and 05/24. Wants to continue with aggressive medical care. D/w hospice but not interested currently.
Anticipated Discharge: > 48 hours
Subjective/Interval History
-
Date of Service: May 24, 2023
States of dry mouth
eating apple sauce
not much appetite
Off Levophed this am
Objective Data
-
Labs:
Laboratory Results
05/24/23
03:34
WBC 7.9
Hgb 9.4 L
Hct 29.2 L
Plt Count 219
Sodium 135
Potassium 5.1
Chloride 111 H
Carbon Dioxide 22
BUN 104 H*
Creatinine 2.7 H
Glucose 111 H
Calcium 7.7 L
Vital Signs:
Vital Signs
Temp Pulse Resp BP Pulse Ox
96.4 F L 95 29 111/69 99
05/24/23 11:58 05/24/23 13:21 05/24/23 13:11 05/24/23 13:21 05/24/23 13:11
I&O
05/23/23 05/24/23 05/25/23
06:59 06:59 06:59
Intake Total 1140 / 1140 2094 / 2094
Output Total 850 / 850 660 / 660
Balance 290 / 290 1435 / 1435
Physical Exam
-
General: Appears Chronically Ill and Cachectic
HEENT: Normocephalic, Atraumatic and Other (dry mouth )
Respiratory: Decreased Breath Sounds; Negative Wheezes or Rhonchi
Cardiac: S1/S2 and Irregular Rhythm; Negative Murmur
GI: Soft, Nontender, Nondistended and Normal Bowel Sounds
Genito-urinary: Ferro (dark michaelle color urine with some sediments )
Musculoskeletal: No Clubbing, No Cyanosis and No Edema
Neuro: Awake and No Motor Deficits
Psych: Calm
Data Reviewed
-
Total Time Spent with Patient (in minutes): 56
--- NOTE | 2023-05-24 14:32 | W.CON.NEPH ---
Addendum entered and electronically signed by Max Parker DO 05/24/23 14:47:
Will check renal ultrasound in setting of CKD stage IV
Original Note:
Consultation
-
Date/Time Consultation Requested: 05/24/23 2:00 pm
Date/Time Consultation Performed: 05/24/2023 2:00 PM
Requesting Provider: Sean
Performing Provider: Keith
Reason for Consultation: Chronic kidney disease stage 4 /azotemia
Medical History
-
Chief Complaint: CKD stage IV
History of Present Illness:
87-year-old male with past medical history of CKD stage IV with baseline creatinine of 2.5 as of August 11, 2022. Patient has a history of paroxysmal atrial fibrillation maintained on amiodarone and chronically anticoagulated with Eliquis. He has a
history of BPH with chronic Womack insertion and is maintained on finasteride. The patient also has a history of chronic Lasix administration for presumed diastolic heart failure. He has a history of multiple falls with current sacral fracture and
significant pain. He presented to the hospital a few days prior with chest discomfort and dyspnea on exertion. He was initially provided with diuresis and his creatinine is now risen from 2.3-2.7 with a BUN level of 104 nephrology was consulted/
Past Medical History
Myelodysplastic syndrome
Paroxysmal atrial fibrillation
Chronic heart failure preserved EF
CKD4 2.5
Lumbar spinal stenosis
BPH
Macular degeneration
Moderate protein calorie malnutrition
Past Surgical History: Appendectomy
Social History
Tobacco: Non-Smoker
Alcohol: Occasional
Drug: None
Family History
No CKD
Allergies / Home Medications
Allergy/AdvReac Type Severity Reaction Status Date / Time
No Known Allergies Allergy Verified 10/14/22 12:12
Medication Instructions Recorded Confirmed Type
vit C 250 mg-vit E 90 mg-zinc 40 2 ea PO DAILY Supplement 01/01/20 05/18/23 History
mg-copper 1 [id number]
capsule (PreserVision AREDS-2)
furosemide 40 mg tablet (Lasix) 40 mg PO DAILY Fluid 09/27/21 05/18/23 History
retention/Swelling
amiodarone 200 mg tablet 200 mg PO DAILY Heart 12/06/21 05/18/23 History
disease/condition
apixaban 2.5 mg tablet (Eliquis) 2.5 mg PO BID Blood clot 07/19/22 05/18/23 History
prevention/tx
cholecalciferol (vitamin D3) 25 25 mcg PO DAILY Supplement 05/18/23 05/18/23 History
mcg (1,000 unit) tablet (Vitamin
D3)
finasteride 5 mg tablet 5 mg PO DAILY 05/18/23 05/18/23 History
prednisone 20 mg tablet 20 mg PO BID inflammation 05/18/23 05/18/23 History
sulfamethoxazole 400 1 tab PO BID Infection 05/18/23 05/18/23 History
mg-trimethoprim 80 mg tablet
Review of Systems
-
Unable to obtain full review of systems at this time due to: Other (Patient predominantly lethargic and poorly responds)
All other systems: Negative unless noted
Respiratory: Trouble Breathing
: Other (Has chronic Womack)
Musculoskeletal: Other (Significant sacral pain)
Physical Exam
Vital Signs
Vital Signs
Temp Pulse Resp BP Pulse Ox
96.4 F L 95 29 111/69 99
05/24/23 11:58 05/24/23 13:21 05/24/23 13:11 05/24/23 13:21 05/24/23 13:11
Lab Results
Chest x-ray personally reviewed I noted no significant pulmonary edema with normal heart size trace bilateral small effusions
Old records reviewed from 08/11/2022 revealed a previous creatinine of 2.5 in the electronic medical recore
05/24/23 03:34
05/24/23 03:34
WBC 7.9 10^3/uL (4.8-10.8) 05/24/23 03:34
RBC 2.68 10^6/uL (4.70-6.10) L 05/24/23 03:34
Hgb 9.4 g/dL (13.0-18.0) L 05/24/23 03:34
Hct 29.2 % (39.0-52.0) L 05/24/23 03:34
Plt Count 219 10^3/uL (130-400) 05/24/23 03:34
Sodium 135 mmol/L (135-145) 05/24/23 03:34
Potassium 5.1 mmol/L (3.5-5.1) 05/24/23 03:34
Chloride 111 mmol/L (98-107) H 05/24/23 03:34
Carbon Dioxide 22 mmol/L (22-30) 05/24/23 03:34
BUN 104 mg/dl (9-20) H* 05/24/23 03:34
Creatinine 2.7 mg/dL (0.7-1.3) H 05/24/23 03:34
eGFR 22.26 05/24/23 03:34
Glucose 111 mg/dl (70-99) H 05/24/23 03:34
Calcium 7.7 mg/dl (8.4-10.2) L 05/24/23 03:34
Ifq-J-Yagcskalzep Pept 944 pg/ml 05/18/23 12:02
Albumin 3.0 g/dl (3.5-5.0) L 05/18/23 12:02
Physical Exam
General: Other (Poorly responsive and lethargic)
HEENT: EOMI, Anicteric, Ear/Nose Intact, Neck Supple, Trachea Midline and No JVD
Respiratory: Other (Coarse breath sounds noted bilaterally with decreased breath sounds to bases)
Cardiac: S1/S2 (Irregular irregular) and No Edema
Breast: Deferred by me
Abdomen: Soft, Nontender, Nondistended and Other (Decreased breath)
Genito-urinary: Bloody Urine and Other (Indwelling Womack cath)
Musculoskeletal: No Clubbing, No Cyanosis and Edema (Pedal edema noted)
Skin: Warm and Dry
Hematologic/Lymphatic: No Cervical Lymphadenopathy, No Submandibular Lymphadenopathy and No Supraclavicular Lymphadenopathy
Psych: Other (Poorly responsive and lethargic)
Assessment/Plan
-
Impression:
Admission for hypoxic respiratory insufficiency in setting of atrial fibrillation with rapid ventricular response
Profound azotemia
CKD stage IV
Hyponatremia
Anemia
BPH with chronic Womack
Myelodysplastic syndrome
Paroxysmal atrial fibrillation on chronic Eliquis
Diabetes
Sacral trauma
Plan:
Creatinine is not far from baseline but azotemia is significant with BUN level of excess of 100
Urinalysis notable for significant blood and Womack to be exchanged
Would heme check stools to evaluate for acute GI blood loss given significantly elevated BUN of 104 and creatinine at 2.7
Currently maintained on midodrine support for hemodynamics to keep MAP at 65 or greater to augment renal artery perfusion pressuren (patient was previously on pressor support on presentation)
No more Bactrim
Diuretics currently held
Maintain mild fluid restriction in setting of hyponatremia
Will check fractional secretion of sodium to assess for prerenal state
[2023-05-24 14:49] LABS: Creatine Phosphokinase 26 U/L (55-170)
[2023-05-24] MEDS: NSS IV (16:26)
--- NOTE | 2023-05-24 16:51 | CM ---
Addendum entered by Mary Rueda RN 05/24/23 17:04:
Per & son patient has fallen twice recently at home.
Original Note:
Patient with hypotension, LANE, Acute hypoxic respiratory insufficiency, atrial fib, Subacute bilateral sacral fractures. PT & OT Evals; requires assist of 2, recommend skilled rehab. Per nurse assessment; confused, forgetful.
Spoke with patient's Magnolia and son Mihir; both agree to short term SNF for rehab and prefer referrals to [facility]. They are unsure about the nursing home plan - home with caregiver vs SNF. Son says patient/ may prefer patient
returning home with caregiver due to SNF cost for LTC. has mobility issues and is homebound.
SNF referrals placed.
Plan follow up SNF referrals.
--- NOTE | 2023-05-24 17:35 | CON.MD ---
Addendum entered and electronically signed by Franck Spencer Jr., MD 05/24/23 17:59:
rechecked patient
asleep
ferro draining pyridium colored urine indicating correct position
hold eliquis overnight
recehck in am
Original Note:
Consultation - Medical
-
see dictated note
pt followed by dr hager for urinary retention
in jan/feb 2023 had cysto and UDS- showed bph with dig detrussor overactivity and spasm- discussion of TURP was had- but pt was not deemed medically fit at that time
has had sig trouble with ferro- rnbthj-cgze-aovheyzgmjq- had nonlatex ferro placed and home irrigation regimen with vn- but still problematic
had cx may 15- negative
now admitted with hypoxia/hypotension/afib and chronic renal insuff
had lumbar MRI- renal atrophy and cysts- no hydro- very thickened bladder wall
nurses attempted to change ferro today but were unable to
under sterile condition- 18 greenlandic coude advanced- some resititance in bulbar urethra- balloon inflated and cath irrigated without difficulty- but pt appears to have bery low capacity/spastic bladder
mild hematuria
pvr was obtained prior to ferro placement- no sig residual volume in bladder
plan
continue proscar
hold eliquis for now until hematuria clears- functional cath confirmed
i believe the difficulty in positioning cath is due to spastic/high pressure nature of bladder- but will observe closely
prior to discharge will try to convert back to non latex cath to reduce sediment formation
will follow closely
[2023-05-24 18:41] LABS: Glucose - Point of Care 132 mg/dl (70-99)
[2023-05-24] MEDS: DETROL LA 4 MG PO (19:37)
[2023-05-24] MEDS: TYLENOL PO (21:17)
[2023-05-24 21:30] LABS: Body Fluid for Eosinophils No Eosinophils seen
[2023-05-24] MEDS: TOPROL XL 50 MG PO (21:30)
[2023-05-24 22:09] LABS: Glucose - Point of Care 217 mg/dl (70-99)
[2023-05-24 22:51] LABS: Urine Albumin 2+ (Neg - Trace); Urine Bilirubin Negative (Negative); Urine Character Bloody (Clear); Urine Color Red; Urine Glucose Negative (Negative); Urine Ketone Trace (Negative); Urine Leukocyte 1+ (Negative); Urine Nitrite Negative (Negative); Urine Occult Blood 4+ (Negative); Urine Urobilinogen Negative (Neg - 1+)
[2023-05-24 22:59] LABS: Urine Squamous Cell 0-2 /LPF (Few); Urine Triple Phosphate Crystal Present
[2023-05-24 23:00] LABS: Urine Red Blood Cell >100 /HPF (0-2)
[2023-05-24 23:15] LABS: Urine Sodium 67 mmol/L (30-90)
[2023-05-25] VITALS (27 sets, daily range): BP systolic 81–131; BP diastolic 50–95; PULSE 102–138; BMI 17.3
--- NOTE | 2023-05-25 01:29 | PTCARENOTE ---
Pt was in mild pain, prn medication given. Assessment care and vitals as charted.
[2023-05-25] MEDS: TYLENOL 650 MG PO ×3 (03:10→14:29)
[2023-05-25 05:05] LABS: Hematocrit 27.7 % (39.0-52.0); Hemoglobin 9.1 g/dL (13.0-18.0); Mean Corp Hgb Conc. 32.9 g/dL (33.0-37.0); Mean Corpuscular Hgb 34.2 pg (27.0-31.0); Mean Corpuscular Volume 104.1 fL (80.0-94.0); Mean Platelet Volume 10.2 fL (7.4-10.4); Platelet Count 209 10^3/uL (130-400); Red Blood Cell Count 2.66 10^6/uL (4.70-6.10); Red Cell Dist. Width 25.9 % (11.5-14.5); White Blood Cell Count 9.3 10^3/uL (4.8-10.8)
[2023-05-25 05:34] LABS: Blood Urea Nitrogen 108 mg/dl (9-20); Calcium 8.1 mg/dl (8.4-10.2); Carbon Dioxide 21 mmol/L (22-30); Chloride 111 mmol/L (98-107); Estimated Creatinine Clearance 14 ml/min; Glucose 129 mg/dl (70-99); Potassium 5.5 mmol/L (3.5-5.1); Sodium 137 mmol/L (135-145); eGFR 20.43
--- NOTE | 2023-05-25 05:55 | PTCARENOTE ---
Pt Womack draining bloody tinge urine with small clots. Bladder scan done no urine found. output total 350 for shift.
--- NOTE | 2023-05-25 05:58 | W.PN.URO.CBU ---
Today's Communication / Plan
-
continue ferro
Assessment / Plan
-
chronic urinary retention
difficult ferro placement
renal insuff- acute on chronic
ferro functional- prior to discharge may need to convert back to non-latex cath as pt had difficulty with sediment and obstruction in outpt setting
not a medical candidate for any intervention currently
await ucx results
no hydro- renal following
hold eliquis for 24hrs- if no hematuria may restart in am
will follow
Diagnosis
-
Date of Service: May 25, 2023
-
Patient Diagnosis:
chronic urinary retention
difficult ferro placement
renal insufficiency
Subjective
-
pt somewhat confused
no events overnight
ferro draining pyridium colored urine- marginal output
repeat ucx pending- u/s shows no hydro
Objective
-
Vital Signs
Temp Pulse Resp BP Pulse Ox
97.6 F 110 19 109/67 99
05/25/23 02:56 05/25/23 05:00 05/25/23 05:00 05/25/23 05:00 05/25/23 04:00
Intake and Output
05/23/23 05/24/23 05/25/23
06:59 06:59 06:59
Intake Total 1140 / 1140 2095 / 2095 550 / 550
Output Total 850 / 850 660 / 660 750 / 750
Balance 290 / 290 1435 / 1435 -200 / -200
Intake:
Oral fluids 1140 / 1140 625 / 625 250 / 250
Amount of oral supplement(s) 100 / 100
consumed
IV fluids (Total) 1425 / 1425 200 / 200
IV piggybacks 45 / 45
Output:
Urine, Ferro 850 / 850 660 / 660 300 / 300
Urine, Voided 450 / 450
Laboratory Results
05/25/23 04:37
05/25/23 04:37
Physical Exam
-
General - no acute distress
Abdomen - soft, non-tender
Genitalia - normal- ferro in place
[2023-05-25 07:53] LABS: Absolute Neutrophils -Man Diff 8.7 10^3/uL (1.4-6.5); Band Neutrophils 8 % (0-3); Lymphocytes 3 % (20-51); Segmented Neutrophils 86 % (42-75)
[2023-05-25 07:54] LABS: Anisocytosis 2+; Atypical Lymphocytes 1 %; Basophilic Stippling 1+; Hypochromasia 2+; Metamyelocytes 1 % (-); Myelocytes 1 % (-); Normal RBC Morphology No; Nucleated Red Blood Cells 5 (-); Platelets Checked Yes; Polychromasia 2+; Target Cells 1+
[2023-05-25 07:55] LABS: Acanthocytes 1+; Ovalocytes 1+; Schistocytes Occasional; Tear Drop Red Blood Cells FEW; Total Cells Counted 100
[2023-05-25 08:04] LABS: Glucose - Point of Care 126 mg/dl (70-99)
[2023-05-25] MEDS: NOVOLOG FLEXPEN-LOW RESISTANCE SC ×3 (08:40→18:20)
[2023-05-25] MEDS: FLOMAX 0.400000000000000022 MG PO (08:54)
[2023-05-25] MEDS: TOPROL XL 50 MG PO (08:54)
[2023-05-25] MEDS: PACERONE 200 MG PO (08:54)
[2023-05-25] MEDS: ProAmatine 5 MG PO ×3 (08:54→18:23)
[2023-05-25] MEDS: PERCOCET 5/325 1 TABLET PO (08:56)
--- NOTE | 2023-05-25 09:15 | PTCARENOTE ---
Patient received from seo marketing specialist. Patient currently asleep more arousable and alert than yesterday although still confused at times. VSS. A-fib on tele. No events noted overnight. Patient still with complaints of sacral pain. Womack exchanged
yesterday, bloody output. Medications given with applesauce. Call garsia in reach.
--- NOTE | 2023-05-25 09:51 | W.PN.NEPH.PH ---
Today's Communication / Plan
-
1L NSS
lokelma
Assessment/Plan
-
Impression:
Admission for hypoxic respiratory insufficiency in setting of atrial fibrillation with rapid ventricular response
Profound azotemia
CKD stage IV
Hyponatremia
Anemia
BPH with chronic Ferro
Myelodysplastic syndrome
Paroxysmal atrial fibrillation on chronic Eliquis
Diabetes
Sacral trauma
Plan:
Creatinine up to 2.9 and azotemia is significant with BUN level of excess of 100
hyperkalemia up to 5.5, will provide lokelma
will provide one liter of IVFs, reviewed cxr no chf, and patient with worsening LANE
renal u/s reviewed shows advanced CKD changes but no obstruction
Urinalysis notable for significant blood and Ferro was exchanged by Urology on 05/24, there was likely some component of obstruction
heme checked stools to evaluate for acute GI blood loss given significantly elevated BUN of 104 and creatinine at 2.7
Currently maintained on midodrine support for hemodynamics to keep MAP at 65 or greater to augment renal artery perfusion pressure (patient was previously on pressor support on presentation)
No more Bactrim
Diuretics currently held
UOP around 750cc
checked fractional secretion of sodium to assess for prerenal state: not consistent with pre renal stimulus
-
-
Date of Service: May 25, 2023
CC / HPI / ROS
-
Chief Complaint:
LANE
History of Present Illness:
creatinine worsening to 2.9 with BUN >100
hemodynamically more stable but requiring midodrine
ferro exchanged yesterday
Review of Systems:
ferro
confused
poor po intake
no sob
Labs
-
Labs:
WBC 9.3 10^3/uL (4.8-10.8) 05/25/23 04:37
RBC 2.66 10^6/uL (4.70-6.10) L 05/25/23 04:37
Hgb 9.1 g/dL (13.0-18.0) L 05/25/23 04:37
Hct 27.7 % (39.0-52.0) L 05/25/23 04:37
Plt Count 209 10^3/uL (130-400) 05/25/23 04:37
Sodium 137 mmol/L (135-145) 05/25/23 04:37
Potassium 5.5 mmol/L (3.5-5.1) H 05/25/23 04:37
Chloride 111 mmol/L (98-107) H 05/25/23 04:37
Carbon Dioxide 21 mmol/L (22-30) L 05/25/23 04:37
BUN 108 mg/dl (9-20) H* 05/25/23 04:37
Creatinine 2.9 mg/dL (0.7-1.3) H 05/25/23 04:37
eGFR 20.43 05/25/23 04:37
Glucose 129 mg/dl (70-99) H 05/25/23 04:37
Calcium 8.1 mg/dl (8.4-10.2) L 05/25/23 04:37
Cix-K-Gobxzyxcgkt Pept 944 pg/ml 05/18/23 12:02
Albumin 3.0 g/dl (3.5-5.0) L 05/18/23 12:02
Physical Exam
-
Vital Signs:
Vital Signs
Temp Pulse Resp BP Pulse Ox
96.7 F L 114 14 113/71 98
05/25/23 07:22 05/25/23 08:54 05/25/23 06:00 05/25/23 08:54 05/25/23 06:00
Cardiovascular:: Regular rate and rhythm
Respiratory:: Bilateral: Coarse
Lung Excursion:: Normal
Abdomen:: Nontender and Soft
Bowel Sounds:: Normal
Extremity Edema:: None: Bilateral:
Ferro Catheter: Yes
--- NOTE | 2023-05-25 10:00 | PTOTSP ---
Attempted to see patient for a dysphagia evaluation. Per discussion with nursing, patient was unable to chew chopped chicken last night. Consult placed given concern that a modified diet may be needed. Breakfast was held until PRINCIPAL TECHNOLOGIST consult
completed.
Met with patient at bedside who was perseverative on his cell phone. Patient was not agreeable to work with PRINCIPAL TECHNOLOGIST for this reason. Will attempt to follow up as able/appropriate. Consider ordering a pureed diet or pureed items from menu until
consult can be completed.
--- NOTE | 2023-05-25 10:21 | W.PN.CD ---
Today's Communication / Plan
-
-Continue amiodarone.
-Continue and metoprolol succinate (as BP allows).
-Overall prognosis appears to be poor.
Impression / Plan
-
87 y/o male with MDS, chronic anemia, macular degeneration, glaucoma, CKD, AFIB on amiodarone and Eliquis, and HFpEF (improved CM), and chronic ferro who is here for evaluation of feeling short of breath with exertion. He was found to be in AF RVR.
LUCIANO:
-echo this admit: Normal biventricular size and systolic function without regional wall motion abnormality. Estimated LVEF 55-60%. Asymmetric septal hypertrophy: IVS 1.5 cm, LVPW 1.0 cm. Mild/moderate mitral regurgitation.�Aortic sclerosis without
stenosis. Mild/moderate aortic regurgitation. Mild/moderate tricuspid regurgitation. Normal PASP. Stable.
-patient CXR and BNP okay
HFpEF: chronic, stable
-Lasix is being held due to low blood pressure and decreased PO intake.
AFIB RVR:
-Heart rate mildly elevated sometimes, but remains fairly controlled overall, despite held metoprolol for hypotension previously requiring pressors.
-Continue amiodarone.
-Continue and metoprolol succinate (as BP allows).
-Continue Eliquis.
Acute on chronic kidney failure:
-Holding lasix; encourage PO intake.
Abnormal troponin:
-suspect acute non-ischemic myocardial injury (anemia, kidney disease, afib, infectious process)
-echo without change
UTI:
-patient recently reported being treated for a UTI. Management per internal medicine.
Anemia:
-similar to previous
Hypotension:
-now on midodrine
Subjective:
Patient is tired. I asked if he was short of breath and he told me I am asking too may questions. He got Percocet this AM for pain.
TTE: 05/19/23
�Normal biventricular size and systolic function without regional wall motion
�abnormality. Estimated LVEF 55-60%.
�Asymmetric septal hypertrophy: IVS 1.5 cm, LVPW 1.0 cm.
�Mild/moderate mitral regurgitation.
�Aortic sclerosis without stenosis. Mild/moderate aortic regurgitation.
�Mild/moderate tricuspid regurgitation. Normal PASP.
�
�Compared to 07/22/22: no significant change.
Physical Exam
Vital Signs/Labs
Vital Signs
Temp Pulse Resp BP Pulse Ox
96.7 F L 114 14 113/71 98
05/25/23 07:22 05/25/23 08:54 05/25/23 06:00 05/25/23 08:54 05/25/23 06:00
05/24/23 05/25/23 05/26/23
06:59 06:59 06:59
Actual Weight 55 kg 54.6 kg
05/25/23 04:37
05/25/23 04:37
Magnesium 2.4 mg/dl (1.6-2.3) H 05/21/23 06:20
TSH 1.62 uIU/ml (0.47-4.68) 05/19/23 06:34
05/18/23
12:02
Waa-R-Ptsfinqcofa Pept 944
Physical Exam
Constitutional: No acute distress
EENT: Anicteric
Cardiovascular: Pedal edema is absent, Rhythm/rate is irregular, Systolic murmur present (2/6) and S1S2 is normal
Respiratory: Respiratory effort normal and Other (Decreased bibasilar breath sounds)
GI: Soft
Neuro/Psych: AO x 3
Other: Skin (Warm, dry)
Data Reviewed
-
Date of Service: May 25, 2023
EKG: Tracing Personally Visualized and interpreted (Telemetry: A-fib)
Medical Tests (PFT, Pathology etc): Discussed with Nurse
Labs: Labs Reviewed by me
[2023-05-25] MEDS: LOKELMA 10 GRAM PO (11:44)
[2023-05-25] MEDS: NSS 1000 IV (11:44)
[2023-05-25 12:12] LABS: Glucose - Point of Care 143 mg/dl (70-99)
--- NOTE | 2023-05-25 12:34 | PTOTSP ---
Dysphagia Evaluation
Patient presents with signs concerning for at least mild oral, unspecified pharyngeal dysphagia, and aspiration for consistencies assessed (thin liquids and pureed solids). Suspect lethargy and deconditioning are both negatively contributing to his
swallowing dysfunction. Patient is not appropriate for oral PO and not appropriate for a swallowing study at this time.
Recommend:
1. NPO
2. Medications - via non-oral means; if unable to be given non-orally, essential medications in puree
3. Oral care 3-5x daily with suctioning
4. Hold Aspiration Risk Hydration Protocol due to lethargy
5. Dysphagia therapy at the acute care level to determine if/when further objective assessment may be appropriate.
--- NOTE | 2023-05-25 12:44 | W.PN.HOSP.TC ---
Addendum entered and electronically signed by Todd Seaman MD 05/25/23 14:43:
Was able to get in touch with patient Magnolia over the phone. [phone]. Explained to spouse in details about patient prognosis of hypotension, renal failure, severe dysphagia unable to tolerate any intake as severe risk of aspiration.
is 86 years old and lives by herself at home. She is not sure if she can handle patient care at home. Discussed about hospice and spouse stated if no improvement then might be willing to discuss about switching to hospice. However at this
moment would like to continue with medical care. If hospice is pursued family will NOT be able to take care of patient at home.
Original Note:
Today's Communication/Plan
-
NPO with meds
IVF
Renal bladder US
hemetest stools
holding eliquis
monitor BP
prognosis poor
Assessment / Plan
Assessment / Plan
Hypotension ?due to overdiuresis and decrease po intake-s/p IVF leading to improvement in BP. Midodrine TID for now. off levophed. Afebrile.
LANE on CKD stage IV ?prerenal (dec po intake and recent diuresis vs. ATN (hypotension) -hold lasix. gentle IVF. Cr at 2.9 worsened and and severely elevated BUN now. Exchange ferro (not done on admission) repeat UA and urine lytes ordered. Avoid
hypotension. Plan to give additional IVF today. Renal bladder US pending.
Severely elevated BUN- likely in setting of worsening renal function. No BM and no daniel luminal bleeding noted. Hgb without significant drop.
Acute hypoxic respiratory insufficiency - possibly due to rapid atrial fibrillation.� Oxygenation normal on room air.
Paroxysmal atrial fibrillation with RVR -continue Eliquis, amiodarone, metoprolol. TSH normal. Rate controlled hold metoprolol in setting of hypotension
Elevated troponin -suspect non-RI troponin elevation due to acute illness. Troponins have peaked.
Hyponatremia - ?due to hypovolemia-IVF for now. resolved.
DM2 with hyperglycemia -new diagnosis of diabetes. Hemoglobin A1c 6.5%. Would manage with diet alone given his frailty and age.
Subacute bilateral sacral fractures - suspect traumatic and due to fall and underlying osteoporosis.� Has had multiple falls in the past.� Fractures confirmed by lumbar MRI performed 05/12/2023. Dr. Hagen spoke with spine surgery Dr. Dereje Devries, he does
not recommend surgical intervention.� Recommends medical management, consideration of IR consult. Patient was started on prednisone prior to admission for his sacral pain due to the fracture, discontinued after admission due to inefficacy. Pain
control but due to his mentation/BP wont be able to tolerate much narcs.
Myelodysplastic syndrome -followed by [facility].
BPH/chronic urinary retention -Ferro catheter dependent.� Patient was started on Bactrim single strength twice daily on May 15 prior to admission. � Urine culture in the hospital shows diphtheroids. No indication for antibiotics currently.
Added Flomax, Pyridium.
Suspected mild hematuria- ferro catheter exchange per urology on 05/24. Eliquis has been held. Appreciate urology recs.
Chronic heart failure preserved EF -� BNP 944.�Echocardiogram shows LVEF 55 to 60%, mild to moderate MR, mild to moderate AR, mild to moderate TR. Hold lasix for today. Cr slowly uptrending and not eating much.
Dysphagia- npo with meds only. IVF will be provided.
Mild confusion-?delirium. Monitor mentation for now.
Heterozygous hemochromatosis
Macular degeneration, nonexudative
Colon polyp/diverticulosis
Mild hyperkalemia-s/p Lokelma again.
DNR
Ambulatory dysfunction -continue PT/OT.
Dispo -probably will benefit from SNF.
updated son over the phone in details on 05/23 and 05/24. Wants to continue with aggressive medical care. D/w hospice but not interested currently.
Anticipated Discharge: > 48 hours
Subjective/Interval History
-
Date of Service: May 25, 2023
Keeps talking his cellphone
mild confusion noted
coughed yesterday wtih solid foods
Objective Data
-
Labs:
Laboratory Results
05/25/23
04:37
WBC 9.3
Hgb 9.1 L
Hct 27.7 L
Plt Count 209
Sodium 137
Potassium 5.5 H
Chloride 111 H
Carbon Dioxide 21 L
BUN 108 H*
Creatinine 2.9 H
Glucose 129 H
Calcium 8.1 L
Vital Signs:
Vital Signs
Temp Pulse Resp BP Pulse Ox
96.2 F L 114 14 113/71 98
05/25/23 11:26 05/25/23 08:54 05/25/23 06:00 05/25/23 08:54 05/25/23 06:00
I&O
05/24/23 05/25/23 05/26/23
06:59 06:59 06:59
Intake Total 2094 / 2094 550 / 550
Output Total 660 / 660 750 / 750
Balance 1435 / 1435 -200 / -200
Physical Exam
-
General: Appears Chronically Ill and Cachectic
HEENT: Normocephalic, Atraumatic and Other (dry mouth )
Respiratory: Decreased Breath Sounds; Negative Wheezes or Rhonchi
Cardiac: S1/S2 and Irregular Rhythm; Negative Murmur
GI: Soft, Nontender, Nondistended and Normal Bowel Sounds
Genito-urinary: Ferro (dark michaelle color urine)
Musculoskeletal: No Clubbing, No Cyanosis and No Edema
Neuro: Awake and No Motor Deficits
Psych: Calm
Data Reviewed
-
Total Time Spent with Patient (in minutes): 55
--- NOTE | 2023-05-25 16:40 | CM ---
Patient with hypotension, LANE, Acute hypoxic respiratory insufficiency, atrial fib, Subacute bilateral sacral fractures. ST Eval - NPO. PT & OT Evals; requires assist of 2, recommend skilled rehab. Per nurse assessment; alert, confused at times.
Noting Dr Meeks notes; prognosis discussed, GOC discussion.
Spoke with [facility]; they will consider the patient but will need a LTC application completed by the family- the son can contact her tomorrow.
Spoke with patient's & son Mihir; was upset saying doctor had given her poor prognosis today. She told him she could not care for the patient at home. Son will call Erica at [facility] tomorrow to discuss.
Plan follow patient's NPO status.
Plan follow up with [facility] if LTC application done/accepted.
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
--- NOTE | 2023-05-25 18:01 | PTCARENOTE ---
Patient with low temps during the day. Hospitalist made aware. Told hospitalist that patient keeps taking off gown and blankets and that a trino hugger might now be appropriate as he would not keep it on. Instructed to use warm blankets,
temperature in the room was also increased. Rechecked auxiliary temp at 97.4
--- NOTE | 2023-05-25 18:07 | PTCARENOTE ---
Addendum entered by Simon Petersen RN 05/25/23 18:35:
Cardiology made aware as well. Dr. Eubanks.
Original Note:
Patient Bradycardic, Hospitalist made aware. EKG, monitor, and hold Amio.
[2023-05-25 18:36] LABS: Glucose - Point of Care 140 mg/dl (70-99)
[2023-05-25] MEDS: TYLENOL PO (21:43)
[2023-05-25] MEDS: TOPROL XL PO (21:43)
[2023-05-26] VITALS (12 sets, daily range): BP systolic 93–158; BP diastolic 46–76; BMI 16.9
[2023-05-26 00:16] LABS: Glucose - Point of Care 107 mg/dl (70-99)
[2023-05-26] MEDS: TYLENOL PO ×2 (03:00→10:47)
[2023-05-26 03:55] LABS: % Basophils 0.2 % (0-2); % Eosinophils 1.7 % (0-6); % Immature Granulocytes 1.8 % (0-0.5); % Lymphocytes 5.4 % (20.5-51.1); % Monocytes 3.2 % (1.7-9.3); % Neutrophils 87.7 % (42.2-75.2); Absolute Eosinophils 0.2 10^3/uL (0-0.7); Absolute Immature Granulocytes 0.2 10^3/uL (0-0.05); Absolute Lymphocytes 0.5 10^3/uL (1.2-3.4); Absolute Monocytes 0.3 10^3/uL (0.1-0.6); Absolute Neutrophils 8.5 10^3/uL (1.4-6.5); Hematocrit 25.2 % (39.0-52.0); Hemoglobin 8.2 g/dL (13.0-18.0); Mean Corp Hgb Conc. 32.5 g/dL (33.0-37.0); Mean Corpuscular Hgb 34.5 pg (27.0-31.0); Mean Corpuscular Volume 105.9 fL (80.0-94.0); Mean Platelet Volume 9.6 fL (7.4-10.4); Nucleated Red Blood Cells % 2.3 % (-); Platelet Count 180 10^3/uL (130-400); Red Blood Cell Count 2.38 10^6/uL (4.70-6.10); Red Cell Dist. Width 25.9 % (11.5-14.5); White Blood Cell Count 9.7 10^3/uL (4.8-10.8)
--- NOTE | 2023-05-26 03:59 | PTCARENOTE ---
Patient with garbled speech, drowsy in bed, and forgetful. Kept NPO with aspiration precautions in place; HOB >30 degrees, oral care done, PO meds held for safety. Repositioned q2 hours, sacrum/coccyx a deep non blanchable red. Bilat heels with pea
sized spot that is non blanching. Foam mepliexs in place. Small LFA skin tear noted. Tele showing SB/SR heart rates 50-60s. Pt denies any pain, but does moan at times when turning in bed. Womack continues with hematuria. Pt repeatedly states he has
to have a BM but does not go when bedpan is in place. Pt bathed and all linens changed. Multiple warm blankets utilized as patient's temperature can be low. Bed alarm set. Call garsia within reach.
[2023-05-26 04:18] LABS: Blood Urea Nitrogen 106 mg/dl (9-20); Calcium 8.2 mg/dl (8.4-10.2); Carbon Dioxide 20 mmol/L (22-30); Chloride 112 mmol/L (98-107); Estimated Creatinine Clearance 15 ml/min; Glucose 98 mg/dl (70-99); Potassium 5.1 mmol/L (3.5-5.1); Sodium 140 mmol/L (135-145); eGFR 22.26
[2023-05-26] MEDS: NOVOLOG FLEXPEN-LOW RESISTANCE SC ×3 (08:22→18:26)
--- NOTE | 2023-05-26 08:34 | PTCARENOTE ---
Patient had small stool this AM. Hem test negative.
[2023-05-26] MEDS: FLOMAX 0.400000000000000022 MG PO (09:38)
[2023-05-26] MEDS: TOPROL XL 50 MG PO (09:39)
[2023-05-26] MEDS: ProAmatine 5 MG PO ×2 (09:39→13:37)
--- NOTE | 2023-05-26 10:02 | PTOTSP ---
Dysphagia Therapy
Video swallow study warranted to further assess oral and pharyngeal stages of swallowing and determine if patient safe for oral PO in any form. Patient continues with signs concerning for oral and pharyngeal dysphagia with concern for aspiration
with at least thin liquids. Confusion and periods of lethargy negatively impact swallowing safety.
Recommend:
1. NPO until video swallow study
2. Medications - sparingly in puree (crushed if able, cut in half if unable)
3. Oral care 3-5x daily
4. Aspiration Risk Hydration Protocol - ice chips for comfort with direct RN supervision only after oral care if mentation appropriate
--- NOTE | 2023-05-26 10:48 | PTCARENOTE ---
Patient able to take some of his medications with apple sauce. Coughing with intake. Speech therapist recommends video swallow.
--- NOTE | 2023-05-26 10:49 | W.PN.CD ---
Today's Communication / Plan
-
-Will discontinue Lasix due to low blood pressure and decreased PO intake (held for 7 days).
-Patient converted to sinus rhythm yesterday afternoon; was bradycardic to 50s.
-Amiodarone discontinued; continue current dose of metoprolol succinate 50 mg BID.
-Continue Eliquis.
-No further cardiac recommendations at this time; Cardiology will remain available on an as-needed basis.
Impression / Plan
-
87 y/o male with MDS, chronic anemia, macular degeneration, glaucoma, CKD, AFIB on amiodarone and Eliquis, and HFpEF (improved CM), and chronic ferro who is here for evaluation of feeling short of breath with exertion. He was found to be in AF RVR.
LUCIANO:
-echo this admit: Normal biventricular size and systolic function without regional wall motion abnormality. Estimated LVEF 55-60%. Asymmetric septal hypertrophy: IVS 1.5 cm, LVPW 1.0 cm. Mild/moderate mitral regurgitation.�Aortic sclerosis without
stenosis. Mild/moderate aortic regurgitation. Mild/moderate tricuspid regurgitation. Normal PASP. Stable.
-patient CXR and BNP okay
HFpEF: chronic, stable
-Will discontinue Lasix due to low blood pressure and decreased PO intake (held for 7 days).
AFIB RVR:
-Patient converted to sinus rhythm yesterday afternoon; was bradycardic to 50s.
-Amiodarone discontinued; continue current dose of metoprolol succinate 50 mg BID.
-Continue Eliquis.
Acute on chronic kidney failure:
-Discontinuing Lasix as above; encourage PO intake.
Abnormal troponin:
-suspect acute non-ischemic myocardial injury (anemia, kidney disease, afib, infectious process)
-echo without change
UTI:
-patient recently reported being treated for a UTI. Management per internal medicine.
Anemia:
-similar to previous
Hypotension:
-now on midodrine; continue.
Subjective:
Patient is tired. I asked if he was short of breath and he told me I am asking too may questions. He got Percocet this AM for pain.
TTE: 05/19/23
�Normal biventricular size and systolic function without regional wall motion
�abnormality. Estimated LVEF 55-60%.
�Asymmetric septal hypertrophy: IVS 1.5 cm, LVPW 1.0 cm.
�Mild/moderate mitral regurgitation.
�Aortic sclerosis without stenosis. Mild/moderate aortic regurgitation.
�Mild/moderate tricuspid regurgitation. Normal PASP.
�
�Compared to 07/22/22: no significant change.
Physical Exam
Vital Signs/Labs
Vital Signs
Temp Pulse Resp BP Pulse Ox
96.7 F L 60 15 112/53 96
05/26/23 07:41 05/26/23 08:00 05/26/23 08:00 05/26/23 08:00 05/26/23 08:00
05/25/23 05/26/23 05/27/23
06:59 06:59 06:59
Actual Weight 54.6 kg 53.5 kg
05/26/23 03:20
05/26/23 03:20
Magnesium 2.4 mg/dl (1.6-2.3) H 05/21/23 06:20
TSH 1.62 uIU/ml (0.47-4.68) 05/19/23 06:34
05/18/23
12:02
[id number] Pept 944
Physical Exam
Constitutional: No acute distress
EENT: Anicteric
Cardiovascular: Rhythm & rate is regular, Pedal edema is absent, Systolic murmur absent and S1S2 is normal
Respiratory: Respiratory effort normal and Rhonchi Absent (Mild bibasilar)
GI: Soft
Neuro/Psych: Alert
Other: Skin (Warm, dry)
Data Reviewed
-
Date of Service: May 26, 2023
EKG: Tracing Personally Visualized and interpreted (Telemetry: AF --> sinus rhythm)
Medical Tests (PFT, Pathology etc): Discussed with Nurse
Labs: Labs Reviewed by me
--- NOTE | 2023-05-26 12:04 | W.PN.HOSP.TC ---
Addendum entered and electronically signed by Todd Seaman MD 05/26/23 15:43:
Updated son Mihir over the phone in details. Stated that patient failed speech and swallow under video swallow evaluation. Patient currently NPO. With altered mental status, acute on chronic kidney disease and severe dysphagia patient with
severely poor prognosis. Patient son Mihir is interested in hospice and case management consult placed. Called patient spouse to update however reached her caregiver.
Original Note:
Today's Communication/Plan
-
VSE today
DC lasix
cont BB
Hold amiodarone
Trend bmp
nephro recs
Assessment / Plan
Assessment / Plan
Dysphagia n.p.o. okay for meds with pur�e. Video swallow evaluation today.
hypotension ?due to overdiuresis and decrease po intake-s/p IVF leading to improvement in BP. Midodrine TID for now. off levophed. Afebrile. Blood pressure stabilized.
LANE on CKD stage IV ?prerenal (dec po intake and recent diuresis vs. ATN (hypotension) - lasix stopped. gentle IVF. Cr at 2.7 from 2.9. Severely elevated BUN now. Exchange ferro (not done on admission) repeat UA and urine lytes ordered. Avoid
hypotension. Renal bladder US pending. Nephro recs.
Severely elevated BUN- likely in setting of worsening renal function. No BM and no daniel luminal bleeding noted. Hgb without significant drop. Heme test were checked and negative.
Acute hypoxic respiratory insufficiency - possibly due to rapid atrial fibrillation.� Oxygenation normal on room air.
Paroxysmal atrial fibrillation now with bradycardia -TSH normal. Amiodarone stopped. Cont metoprolol 50mg BID with hold parameters. Restart eliquis pending urology clearance.
Elevated troponin -suspect non-[place] troponin elevation due to acute illness. Troponins have peaked.
Hyponatremia - ?due to hypovolemia-IVF for now. resolved.
DM2 with hyperglycemia -new diagnosis of diabetes. Hemoglobin A1c 6.5%. Would manage with diet alone given his frailty and age.
Subacute bilateral sacral fractures - suspect traumatic and due to fall and underlying osteoporosis.� Has had multiple falls in the past.� Fractures confirmed by lumbar MRI performed 05/12/2023. Dr. Hagen spoke with spine surgery Dr. Dereje Devries, he does
not recommend surgical intervention.� Recommends medical management, consideration of IR consult. Patient was started on prednisone prior to admission for his sacral pain due to the fracture, discontinued after admission due to inefficacy. Pain
control but due to his mentation/BP wont be able to tolerate much narcs.
Myelodysplastic syndrome -followed by [facility].
BPH/chronic urinary retention -Ferro catheter dependent.� Patient was started on Bactrim single strength twice daily on May 15 prior to admission. � Urine culture in the hospital shows diphtheroids. No indication for antibiotics currently.
Added Flomax, Pyridium.
Suspected mild hematuria- ferro catheter exchange per urology on 05/24. Eliquis has been held. Appreciate urology recs. Diphteroids in urine culture-likely contaminated and from colonization. Will hold off on abx.
Chronic heart failure preserved EF -� BNP 944.�Echocardiogram shows LVEF 55 to 60%, mild to moderate MR, mild to moderate AR, mild to moderate TR. Hold lasix for today. Cr slowly uptrending and not eating much.
Mild confusion-?delirium. Monitor mentation for now.
Heterozygous hemochromatosis
Macular degeneration, nonexudative
Colon polyp/diverticulosis
Mild hyperkalemia-s/p Lokelma again.
DNR
Ambulatory dysfunction -continue PT/OT.
Dispo -probably will benefit from SNF.
updated son over the phone in details on 05/23 and 05/11 and 05/25. Wants to continue with aggressive medical care. D/w hospice but not interested currently.
Anticipated Discharge: > 48 hours
Subjective/Interval History
-
Date of Service: May 26, 2023
Patient remains agitated with any and all care
Blood pressures remained stable
Had episode of bradycardia yesterday which is starting to improve
Mild improvement in mentation
Objective Data
-
Labs:
Laboratory Results
05/26/23
03:20
WBC 9.7
Hgb 8.2 L
Hct 25.2 L
Plt Count 180
Sodium 140
Potassium 5.1
Chloride 112 H
Carbon Dioxide 20 L
BUN 106 H*
Creatinine 2.7 H
Glucose 98
Calcium 8.2 L
Vital Signs:
Vital Signs
Temp Pulse Resp BP Pulse Ox
96.7 F L 60 15 112/53 96
05/26/23 07:41 05/26/23 08:00 05/26/23 08:00 05/26/23 08:00 05/26/23 08:00
I&O
05/25/23 05/26/23 05/27/23
06:59 06:59 06:59
Intake Total 550 / 550 377 / 377
Output Total 750 / 750 1150 / 1150
Balance -200 / -200 -773 / -773
Physical Exam
-
General: Appears Chronically Ill and Cachectic
HEENT: Normocephalic, Atraumatic and Other (dry mouth )
Respiratory: Decreased Breath Sounds; Negative Wheezes or Rhonchi
Cardiac: S1/S2 and Irregular Rhythm; Negative Murmur
GI: Soft, Nontender, Nondistended and Normal Bowel Sounds
Genito-urinary: Ferro (dark michaelle color urine)
Musculoskeletal: No Clubbing, No Cyanosis and No Edema
Neuro: Awake and No Motor Deficits
Psych: Calm
Data Reviewed
-
Total Time Spent with Patient (in minutes): 55
[2023-05-26 12:33] LABS: Glucose - Point of Care 99 mg/dl (70-99)
--- NOTE | 2023-05-26 13:10 | W.PN.URO.CBU ---
Today's Communication / Plan
-
irrigate ferro as needed
Assessment / Plan
-
chronic urinary retention
difficult ferro placement
renal insuff- acute on chronic
ferro functional- prior to discharge may need to convert back to non-latex cath as pt had difficulty with sediment and obstruction in outpt setting
not a medical candidate for any intervention currently
await ucx results
no hydro- renal following
hold eliquis for 24hrs- if no hematuria may restart in am
will follow
Diagnosis
-
Date of Service: May 26, 2023
-
Patient Diagnosis:
Post Op Day:
Patient Diagnosis:
chronic urinary retention
difficult ferro placement
renal insufficiency
Subjective
-
confused but hematuriain bag
Objective
-
Vital Signs
Temp Pulse Resp BP Pulse Ox
97.9 F 60 15 112/53 96
05/26/23 11:46 05/26/23 08:00 05/26/23 08:00 05/26/23 08:00 05/26/23 08:00
Intake and Output
05/25/23 05/26/23 05/27/23
06:59 06:59 06:59
Intake Total 550 / 550 377 / 377
Output Total 750 / 750 1150 / 1150
Balance -200 / -200 -773 / -773
Intake:
Oral fluids 250 / 250
Amount of oral supplement(s) 100 / 100
consumed
IV fluids (Total) 200 / 200 377 / 377
Output:
Urine, Ferro 300 / 300 1150 / 1150
Urine, Voided 450 / 450
Laboratory Results
05/26/23 03:20
05/26/23 03:20
Review of Systems
-
: Difficulty Voiding and Bleeding
Physical Exam
-
General - well developed, well nourished, no acute distress
Chest - clear bilaterally
Abdomen - soft, non-tender, positive bowel sounds, no CVAT, no incisional pain or distention
Genitalia - normal
Rectal - normal
Skin - warm & dry with no rash
Neuro - AOx3, no motor deficits
Extremities - no clubbing, no cyanosis, no edema
Incision - clean, dry
Dressing - clean, dry, intact
Counseling
-
irrgate ferro if clogging
Care Review
Data Reviewed
Discussed with: Nursing
[2023-05-26] MEDS: TYLENOL 650 MG PO (13:38)
--- NOTE | 2023-05-26 14:28 | PTCARENOTE ---
Patient off unit for video swallow.
--- NOTE | 2023-05-26 15:34 | CM ---
patient had video swallow-pt remains npo except meds okay with puree.son wants to continue aggressive treatment.son is not interested in hospice.i spoke with nyla in adms at [facility].son did contact nyla but states he didn't really know
what direction he was going in.son did not fill out the LTC application.nyla will reassess the bed situation and follow up with us on monday. Pt will need a diet if he goes to [facility] snf to ltc per nyla at [facility].
--- NOTE | 2023-05-26 15:43 | PTOTSP ---
Video Swallow Examination
Patient presented with mild oral and severe pharyngeal dysphagia with reduced airway closure and poor clearance through the pharynx both of which resulted in episodes of penetration/aspiration with thin and mildly thick liquids. Study had to be
discontinued due to patient's inability to clear aspirate with a cough and concern that thicker consistencies would not clear pharynx, aspirate, and negatively impact pulmonary status. Suspect dysphagia is a result of deconditioning.
Recommend:
1. NPO - goals of care discussion
2. Medications - non-oral
3. Oral care 3-5x daily with suctioning
4. Aspiration Risk Hydration Protocol - can offer ice chips for comfort with nursing after oral care with supervision if mentation appropriate
5. Will follow up for family education as appropriate.
--- NOTE | 2023-05-26 16:27 | W.PN.NEPH.PH ---
Today's Communication / Plan
-
- sodium bicarbonate
Assessment/Plan
-
Impression:
Admission for hypoxic respiratory insufficiency in setting of atrial fibrillation with rapid ventricular response
Profound azotemia
CKD stage IV
Hyponatremia
Anemia
BPH with chronic Ferro
Myelodysplastic syndrome
Paroxysmal atrial fibrillation on chronic Eliquis
Diabetes
Sacral trauma
Plan:
Creatinine slightly improved to 2.7 and azotemia is significant with BUN level of excess of 100
hyperkalemia up to 5.5, now down to 5.1 s/p lokelma
give 1L sodium bicarb for NAGMA
renal u/s reviewed shows advanced CKD changes but no obstruction
Urinalysis notable for significant blood and Ferro was exchanged by Urology on 05/24, there was likely some component of obstruction
heme checked stools to evaluate for acute GI blood loss given significantly elevated BUN of 106 and creatinine at 2.7
Currently maintained on midodrine support for hemodynamics to keep MAP at 65 or greater to augment renal artery perfusion pressure (patient was previously on pressor support on presentation)
No more Bactrim
Diuretics currently held
UOP around 750cc
checked fractional secretion of sodium to assess for prerenal state: not consistent with pre renal stimulus
patient's family likely pursuing hospice care which we agree with. patient is a poor candidate for HD
-
-
Date of Service: May 26, 2023
CC / HPI / ROS
-
Chief Complaint:
LANE
History of Present Illness:
creatinine stable at 2.7
hemodynamically more stable but requiring midodrine
ferro exchanged yesterday
Review of Systems:
ferro
confused
poor po intake
no sob
Labs
-
Labs:
WBC 9.7 10^3/uL (4.8-10.8) 05/26/23 03:20
RBC 2.38 10^6/uL (4.70-6.10) L 05/26/23 03:20
Hgb 8.2 g/dL (13.0-18.0) L 05/26/23 03:20
Hct 25.2 % (39.0-52.0) L 05/26/23 03:20
Plt Count 180 10^3/uL (130-400) 05/26/23 03:20
Sodium 140 mmol/L (135-145) 05/26/23 03:20
Potassium 5.1 mmol/L (3.5-5.1) 05/26/23 03:20
Chloride 112 mmol/L (98-107) H 05/26/23 03:20
Carbon Dioxide 20 mmol/L (22-30) L 05/26/23 03:20
BUN 106 mg/dl (9-20) H* 05/26/23 03:20
Creatinine 2.7 mg/dL (0.7-1.3) H 05/26/23 03:20
eGFR 22.26 05/26/23 03:20
Glucose 98 mg/dl (70-99) 05/26/23 03:20
Calcium 8.2 mg/dl (8.4-10.2) L 05/26/23 03:20
Bjm-B-[id number] Pept 944 pg/ml 05/18/23 12:02
Albumin 3.0 g/dl (3.5-5.0) L 05/18/23 12:02
Physical Exam
-
Vital Signs:
Vital Signs
Temp Pulse Resp BP Pulse Ox
97.9 F 58 23 93/50 100
05/26/23 11:46 05/26/23 14:00 05/26/23 14:00 05/26/23 14:00 05/26/23 14:00
Cardiovascular:: Regular rate and rhythm
Respiratory:: Bilateral: Coarse
Lung Excursion:: Abnormal
Abdomen:: Nontender and Soft
Extremity Edema:: None: Bilateral:
Ferro Catheter: Yes
[2023-05-26] MEDS: SODIUM BICARBONATE 1150 MEQ IV (17:28)
[2023-05-26] MEDS: FLUSH (NSS) 1 FLUSH IV (17:33)
--- NOTE | 2023-05-26 17:35 | PTCARENOTE ---
Patient failed video swallow. Ice chips only, and with strict supervision. IV fluids infusing as per Nephrology via right fa IV.
[2023-05-26] MEDS: ProAmatine PO (18:31)
[2023-05-26 18:38] LABS: Glucose - Point of Care 108 mg/dl (70-99)
[2023-05-26] MEDS: TOPROL XL PO (20:02)
--- NOTE | 2023-05-26 20:37 | PTCARENOTE ---
Pt had incont small BM, upon cleaning pt and removing the foam mepliex, it appears there is a moderate sized skin tear under mepleix on right buttock. Generous amount of barrier cream applied. Pressure off-loaded from buttock. Mepleix kept off for
skin to heal.
--- NOTE | 2023-05-26 23:22 | PTCARENOTE ---
Patient taking off tele monitor, blankets and gown saying he needs to get out of here. Re-oriented to time, place and situation. Pt becomes agitated and argumentative when confused. Support given. Yamila care done multiple times for incont small BMs.
Barrier cream re-applied. Repositioned for comfort. Heels floated. Bed alarm set. Call garsia within reach.
[2023-05-26 23:51] LABS: Glucose - Point of Care 133 mg/dl (70-99)
[2023-05-27] VITALS (12 sets, daily range): BP systolic 101–154; BP diastolic 51–102; BMI 16.5
[2023-05-27 04:25] LABS: % Basophils 0.2 % (0-2); % Eosinophils 1.7 % (0-6); % Immature Granulocytes 1.5 % (0-0.5); % Lymphocytes 8.7 % (20.5-51.1); % Monocytes 3.5 % (1.7-9.3); % Neutrophils 84.4 % (42.2-75.2); Absolute Eosinophils 0.1 10^3/uL (0-0.7); Absolute Immature Granulocytes 0.1 10^3/uL (0-0.05); Absolute Lymphocytes 0.5 10^3/uL (1.2-3.4); Absolute Monocytes 0.2 10^3/uL (0.1-0.6); Absolute Neutrophils 5.1 10^3/uL (1.4-6.5); Hematocrit 24.6 % (39.0-52.0); Hemoglobin 7.9 g/dL (13.0-18.0); Mean Corp Hgb Conc. 32.1 g/dL (33.0-37.0); Mean Corpuscular Volume 108.8 fL (80.0-94.0); Mean Platelet Volume 9.7 fL (7.4-10.4); Nucleated Red Blood Cells % 2.5 % (-); Platelet Count 145 10^3/uL (130-400); Red Blood Cell Count 2.26 10^6/uL (4.70-6.10)
[2023-05-27 04:50] LABS: Blood Urea Nitrogen 91 mg/dl (9-20); Carbon Dioxide 23 mmol/L (22-30); Chloride 115 mmol/L (98-107); Estimated Creatinine Clearance 17 ml/min; Glucose 76 mg/dl (70-99); Potassium 4.5 mmol/L (3.5-5.1); Sodium 143 mmol/L (135-145); eGFR 26.98
[2023-05-27 06:06] LABS: Glucose - Point of Care 83 mg/dl (70-99)
[2023-05-27] MEDS: ProAmatine PO ×3 (07:21→17:46)
[2023-05-27] MEDS: TOPROL XL PO ×2 (07:21→21:00)
[2023-05-27] MEDS: FLOMAX PO (07:21)
[2023-05-27] MEDS: NOVOLOG FLEXPEN-LOW RESISTANCE SC (08:43)
[2023-05-27] MEDS: SODIUM BICARBONATE 1150 MEQ IV (08:43)
--- NOTE | 2023-05-27 09:14 | PTCARENOTE ---
pt wakes to name. oriented to self and place. confused about current condition. states no pain but moans when turned. wounds noted on sacrum cream applied. teds on pt bilat legs. room air breath sounds diminished. ivf running as ordered.
ferro care done. draining dark red
--- NOTE | 2023-05-27 09:33 | HOSPNOTE ---
Referral received. Voicemail left for son Mihir. CM and Attending updated.
--- NOTE | 2023-05-27 10:25 | HOSPNOTE ---
Addendum: Spoke to son Mihir. He reports that he does not have access to patients financial records. He also shared that his mother has her own health issues and she is attempting to assist with access to the financial record as well. Mihir reviewed
that patient was a private person with this. SN provided active listening. Mihir did share that he is interested in hospice and that patient would need to go to a facility, home hospice is not a option. SN reviewed that facilities will also need
financial information to assist with eligibility. I updated CM and she will send referrals to facilities with explanation of the situation and see if any assistance can be provided. Rashaad Ash aware that CM will begin working on this and will be in
contact with updates. Hospice will continue to follow and be available. CM and Attending updated.
--- NOTE | 2023-05-27 10:46 | W.PN.HOSP.TC ---
Today's Communication/Plan
-
IVF for now
strict NPO
Monitor urine
Await family decision
Assessment / Plan
Assessment / Plan
Mild oral and severe pharyngeal Dysphagia -failed speecH and shallow at bedside. Strict NPO. Failed VSE study. d/w with son on 05/26 and he wanted to discuss with hospice for more info. In the interim cont with IVF.
hypotension ?due to overdiuresis and decrease po intake-s/p IVF leading to improvement in BP. Midodrine TID need to be held. off levophed. Afebrile. Blood pressure stabilized.
LANE on CKD stage IV ?prerenal (dec po intake and recent diuresis vs. ATN (hypotension) - lasix stopped. gentle IVF. Cr at 2.3 from 2.9. Severely elevated BUN now. Exchange ferro (not done on admission) repeat UA and urine lytes ordered. Avoid
hypotension. Renal bladder US with medical renal disease. IVF per nephor. Nephro recs.
Severely elevated BUN- likely in setting of worsening renal function. No BM and no daniel luminal bleeding noted. Heme test were checked and negative.
Mild hematuria-Eliquis held. Trend hgb.
Acute hypoxic respiratory insufficiency - possibly due to rapid atrial fibrillation.� Oxygenation normal on room air.
Paroxysmal atrial fibrillation now with bradycardia -TSH normal. Amiodarone stopped. Hold metoprolol 50mg BID as strict npo. Eliquis held for hematuria and strict NPO.
Elevated troponin -suspect non-[place] troponin elevation due to acute illness. Troponins have peaked.
Hyponatremia - ?due to hypovolemia-IVF for now. resolved.
DM2 with hyperglycemia -new diagnosis of diabetes. Hemoglobin A1c 6.5%. Would manage with diet alone given his frailty and age.
Subacute bilateral sacral fractures - suspect traumatic and due to fall and underlying osteoporosis.� Has had multiple falls in the past.� Fractures confirmed by lumbar MRI performed 05/12/2023. Dr. Hagen spoke with spine surgery Dr. Dereje Devries, he does
not recommend surgical intervention.� Recommends medical management, consideration of IR consult. Patient was started on prednisone prior to admission for his sacral pain due to the fracture, discontinued after admission due to inefficacy. Pain
control but due to his mentation/BP wont be able to tolerate much narcs.
Myelodysplastic syndrome -followed by [facility].
BPH/chronic urinary retention -Ferro catheter dependent.� Patient was started on Bactrim single strength twice daily on May 15 prior to admission. � Urine culture in the hospital shows diphtheroids. No indication for antibiotics currently.
Added Flomax, Pyridium.
Suspected mild hematuria- ferro catheter exchange per urology on 05/24. Eliquis has been held. Appreciate urology recs. Diphteroids in urine culture-likely contaminated and from colonization. Will hold off on abx.
Chronic heart failure preserved EF -� BNP 944.�Echocardiogram shows LVEF 55 to 60%, mild to moderate MR, mild to moderate AR, mild to moderate TR. Hold lasix for today. Cr slowly uptrending and not eating much.
Mild confusion-?delirium. Monitor mentation for now.
Heterozygous hemochromatosis
Macular degeneration, nonexudative
Colon polyp/diverticulosis
Mild hyperkalemia-s/p Lokelma again.
DNR
Ambulatory dysfunction -continue PT/OT.
Dispo -probably will benefit from SNF.
updated son over the phone in details on 05/23 and 05/24, 05/25 and 05/26. Son was amenable and wanted to discuss further with hospice team. Prognosis poor. CM aware and on board.
Anticipated Discharge: > 48 hours
Subjective/Interval History
-
Date of Service: May 27, 2023
Remains confused and trying to remove his robe
BP and HR stable
Objective Data
-
Labs:
Laboratory Results
05/27/23
03:13
WBC 6.0
Hgb 7.9 L
Hct 24.6 L
Plt Count 145
Sodium 143
Potassium 4.5
Chloride 115 H
Carbon Dioxide 23
BUN 91 H
Creatinine 2.3 H
Glucose 76
Calcium 8.0 L
Vital Signs:
Vital Signs
Temp Pulse Resp BP Pulse Ox
97.4 F 58 10 121/54 100
05/27/23 08:20 05/27/23 10:00 05/27/23 10:00 05/27/23 10:00 05/27/23 10:00
I&O
05/26/23 05/27/23 05/28/23
06:59 06:59 06:59
Intake Total 377 / 377 80 / 80
Output Total 1150 / 1150 1150 / 1150
Balance -773 / -773 -1070 / -1070
Physical Exam
-
General: Appears Chronically Ill and Cachectic
HEENT: Normocephalic, Atraumatic and Other (dry mouth )
Respiratory: Decreased Breath Sounds; Negative Wheezes or Rhonchi
Cardiac: S1/S2 and Irregular Rhythm; Negative Murmur
GI: Soft, Nontender, Nondistended and Normal Bowel Sounds
Genito-urinary: Ferro (dark michaelle color urine)
Musculoskeletal: No Clubbing, No Cyanosis and No Edema
Neuro: Awake and No Motor Deficits
Psych: Calm
[2023-05-27 11:29] LABS: Glucose - Point of Care 89 mg/dl (70-99)
--- NOTE | 2023-05-27 13:27 | W.PN.NEPH.PH ---
Today's Communication / Plan
-
- stop IVF
Assessment/Plan
-
Impression:
Admission for hypoxic respiratory insufficiency in setting of atrial fibrillation with rapid ventricular response
Profound azotemia
CKD stage IV
Hyponatremia
Anemia
BPH with chronic Ferro
Myelodysplastic syndrome
Paroxysmal atrial fibrillation on chronic Eliquis
Diabetes
Sacral trauma
Plan:
Creatinine slightly improved to 2.3 and azotemia improved to 91
hyperkalemia up to 5.5, now down to 4.5 s/p lokelma (x1)
give 1L sodium bicarb for NAGMA --> improved. will hold now.
renal u/s reviewed shows advanced CKD changes but no obstruction
Urinalysis notable for significant blood and Ferro was exchanged by Urology on 05/24, there was likely some component of obstruction
heme checked stools to evaluate for acute GI blood loss given significantly elevated BUN but negative
Currently maintained on midodrine support for hemodynamics to keep MAP at 65 or greater to augment renal artery perfusion pressure (patient was previously on pressor support on presentation)
No more Bactrim
Diuretics currently held
UOP around 750cc
checked fractional secretion of sodium to assess for prerenal state: not consistent with pre renal stimulus
patient's family likely pursuing hospice care which we agree with. patient is a poor candidate for HD
-
-
Date of Service: May 27, 2023
CC / HPI / ROS
-
Chief Complaint:
LANE
History of Present Illness:
creatinine improved at 2.3
hemodynamically more stable but requiring midodrine
ferro exchanged yesterday
Review of Systems:
ferro
confused
poor po intake
no sob
Labs
-
Labs:
WBC 6.0 10^3/uL (4.8-10.8) 05/27/23 03:13
RBC 2.26 10^6/uL (4.70-6.10) L 05/27/23 03:13
Hgb 7.9 g/dL (13.0-18.0) L 05/27/23 03:13
Hct 24.6 % (39.0-52.0) L 05/27/23 03:13
Plt Count 145 10^3/uL (130-400) 05/27/23 03:13
Sodium 143 mmol/L (135-145) 05/27/23 03:13
Potassium 4.5 mmol/L (3.5-5.1) 05/27/23 03:13
Chloride 115 mmol/L (98-107) H 05/27/23 03:13
Carbon Dioxide 23 mmol/L (22-30) 05/27/23 03:13
BUN 91 mg/dl (9-20) H 05/27/23 03:13
Creatinine 2.3 mg/dL (0.7-1.3) H 05/27/23 03:13
eGFR 26.98 05/27/23 03:13
Glucose 76 mg/dl (70-99) 05/27/23 03:13
Calcium 8.0 mg/dl (8.4-10.2) L 05/27/23 03:13
Wgh-P-Lppzbytvtup Pept 944 pg/ml 05/18/23 12:02
Albumin 3.0 g/dl (3.5-5.0) L 05/18/23 12:02
Physical Exam
-
Vital Signs:
Vital Signs
Temp Pulse Resp BP Pulse Ox
97.5 F 60 11 154/54 100
05/27/23 12:06 05/27/23 12:00 05/27/23 12:00 05/27/23 12:00 05/27/23 12:00
Cardiovascular:: Regular rate and rhythm
Respiratory:: Bilateral: Coarse
Lung Excursion:: Abnormal
Abdomen:: Nontender and Soft
Bowel Sounds:: Decreased
Extremity Edema:: None: Bilateral:
Ferro Catheter: Yes
--- NOTE | 2023-05-27 14:32 | PTOTSP ---
Speech Therapy
Current plan of care/ goals of care discussion:
'Per 05/26 MD note, family wants to discuss hospice 2/2 poor prognosis.
Per 05/27 Hospice note: 'Mihir did share that he is interested in hospice and that patient would need to go to a facility, home hospice is not a option'.
Patient's thoughts on current plan of care: Patient shared with CLAMP CARRIER OPERATOR that he is 'done' with the hospital. He is not interested in doing therapy at this time. Patient stated, ' I would rather aspirate and than starve to '. Patient further
explained that he is depressed and would 'shoot (himself) if he could.' CLAMP CARRIER OPERATOR spent time comforting patient and explaining the reasoning for the current recommendations. Patient became agitated and stated that he felt as though no one was listening to
his wishes. CLAMP CARRIER OPERATOR forwarded the conversation to MD.
Swallowing function: CLAMP CARRIER OPERATOR trialed 2 ice chips after oral care and discussion in which patient demonstrated immediate coughing and throat clearing.
Given the above information, recent VSE, clinical presentation, and patient's recent conversation, consider further discussion about GOC as this will likely guide the patient's rehabilitation plan of care. At this time, patient remains NPO and does
not appear interested in therapeutic assistance.
Plan: CLAMP CARRIER OPERATOR will continue to follow; pending hospitalization
[2023-05-27 17:56] LABS: Glucose - Point of Care 91 mg/dl (70-99)
[2023-05-28] VITALS (10 sets, daily range): BP systolic 117–154; BP diastolic 57–98; BMI 16.4
[2023-05-28 00:11] LABS: Glucose - Point of Care 101 mg/dl (70-99)
[2023-05-28 05:36] LABS: Blood Urea Nitrogen 90 mg/dl (9-20); Calcium 8.4 mg/dl (8.4-10.2); Carbon Dioxide 22 mmol/L (22-30); Chloride 110 mmol/L (98-107); Estimated Creatinine Clearance 16 ml/min; Glucose 82 mg/dl (70-99); Potassium 4.7 mmol/L (3.5-5.1); Sodium 146 mmol/L (135-145); eGFR 25.63
[2023-05-28 06:30] LABS: Glucose - Point of Care 83 mg/dl (70-99)
[2023-05-28] MEDS: ProAmatine PO ×3 (07:24→16:35)
[2023-05-28] MEDS: FLOMAX PO (07:24)
[2023-05-28] MEDS: TOPROL XL PO (07:24)
--- NOTE | 2023-05-28 08:35 | PTCARENOTE ---
pt wakes to name. oriented to self and place. sometimes understands current condition. is upset he is still here and not eating. wants to go home. ice chips provided to pt. pt does cough with ice chips. ferro care done. cream applied to
sacrum.
--- NOTE | 2023-05-28 08:38 | W.PN.UPDATE ---
Update Note
Progress Note Update
Chronic urinary retention
Difficulty Womack catheter placement
Acute on chronic renal insufficiency
Cr stable
Hematuria improved over last 48 hrs.
UCx 05/24 => diptheroids (skin contaminant)
Womack catheter functional (latex catheter) - draining well
Not medical candidate for bladder outlet procedure
- Restart Eliquis per Hospital Medicine given improvement in hematuria
- No indication for IV abx (diptheroids - suspected skin contaminant)
- May consider conversion to non-latex (silastic) catheter prior to d/c (pending hospice decision)
--- NOTE | 2023-05-28 10:51 | W.PN.HOSP.TC ---
Today's Communication/Plan
-
Comfort feeding
Transfer to [facility]
Pain control
Haldol as needed for agitation
DC labs and meds
Assessment / Plan
Assessment / Plan
Mild oral and severe pharyngeal Dysphagia -failed speecH and shallow at bedside. Strict NPO. Failed VSE study and repeat swallow evaluation. Patient said he wants to eat and wants to go on hospice. Son agreed. Will start patient on comfort
feeding. Patient and son both understand risk of aspiration. Antisecretory meds.
hypotension ?due to overdiuresis and decrease po intake-s/p IVF leading to improvement in BP. Midodrine TID need to be held. off levophed. Afebrile. Blood pressure stabilized.
LANE on CKD stage IV ?prerenal (dec po intake and recent diuresis vs. ATN (hypotension) - lasix stopped. gentle IVF. Cr at 2.4 from 2.9. Severely elevated BUN now. Exchange ferro (not done on admission) repeat UA and urine lytes ordered. Avoid
hypotension. Renal bladder US with medical renal disease. IVF per nephor. Nephro recs.
Severely elevated BUN- likely in setting of worsening renal function. No BM and no daniel luminal bleeding noted. Heme test were checked and negative.
Mild hematuria-Eliquis held. Trend hgb.
Acute hypoxic respiratory insufficiency - possibly due to rapid atrial fibrillation.� Oxygenation normal on room air.
Paroxysmal atrial fibrillation now with bradycardia -TSH normal. Amiodarone stopped. Hold metoprolol 50mg BID as strict npo. Eliquis held for hematuria and strict NPO.
Elevated troponin -suspect non-SD troponin elevation due to acute illness. Troponins have peaked.
Hyponatremia - ?due to hypovolemia-IVF for now. resolved.
DM2 with hyperglycemia -new diagnosis of diabetes. Hemoglobin A1c 6.5%. Would manage with diet alone given his frailty and age.
Subacute bilateral sacral fractures - suspect traumatic and due to fall and underlying osteoporosis.� Has had multiple falls in the past.� Fractures confirmed by lumbar MRI performed 05/12/2023. Dr. Hagen spoke with spine surgery Dr. Dereje Devries, he does
not recommend surgical intervention.� Recommends medical management, consideration of IR consult. Patient was started on prednisone prior to admission for his sacral pain due to the fracture, discontinued after admission due to inefficacy. Pain
control as on comfort measures.
Myelodysplastic syndrome -followed by [facility].
BPH/chronic urinary retention -Ferro catheter dependent.� Patient was started on Bactrim single strength twice daily on May 15 prior to admission. � Urine culture in the hospital shows diphtheroids. No indication for antibiotics currently.
Added Flomax, Pyridium.
Suspected mild hematuria- ferro catheter exchange per urology on 05/24. Eliquis has been held. Appreciate urology recs. Diphteroids in urine culture-likely contaminated and from colonization. Will hold off on abx.
Chronic heart failure preserved EF -� BNP 944.�Echocardiogram shows LVEF 55 to 60%, mild to moderate MR, mild to moderate AR, mild to moderate TR. Hold lasix for today. Cr slowly uptrending and not eating much.
Mild confusion-?delirium. Monitor mentation for now. Haldol as needed for agitation.
Heterozygous hemochromatosis
Macular degeneration, nonexudative
Colon polyp/diverticulosis
Mild hyperkalemia-s/p Lokelma again.
DNR
Ambulatory dysfunction -continue PT/OT.
Dispo -probably will benefit from SNF.
Discussed with son over the phone in detail. Son agreed with patient decision to start on comfort feeding. Son wants hospice at a facility and unable to take care at home. Case management aware. Start comfort feeding. Will stop all medication
and labs. Son also agreed.
Anticipated Discharge: > 48 hours
Subjective/Interval History
-
Date of Service: May 28, 2023
Patient said he wants to eat.
Objective Data
-
Labs:
Laboratory Results
05/28/23
04:18
Sodium 146 H
Potassium 4.7
Chloride 110 H
Carbon Dioxide 22
BUN 90 H
Creatinine 2.4 H
Glucose 82
Calcium 8.4
Vital Signs:
Vital Signs
Temp Pulse Resp BP Pulse Ox
97.7 F 74 21 141/58 93
05/28/23 07:10 05/28/23 10:00 05/28/23 10:00 05/28/23 10:00 05/28/23 10:00
I&O
05/27/23 05/28/23 05/29/23
06:59 06:59 06:59
Intake Total 80 / 80
Output Total 1150 / 1150 975 / 975
Balance -1070 / -1070 -975 / -975
Physical Exam
-
General: Appears Chronically Ill and Cachectic
HEENT: Normocephalic, Atraumatic and Other (dry mouth )
Respiratory: Decreased Breath Sounds; Negative Wheezes or Rhonchi
Cardiac: S1/S2 and Irregular Rhythm; Negative Murmur
GI: Soft, Nontender, Nondistended and Normal Bowel Sounds
Genito-urinary: Ferro (dark michaelle color urine)
Musculoskeletal: No Clubbing, No Cyanosis and No Edema
Neuro: Awake and No Motor Deficits
Psych: Confused
Data Reviewed
-
Total Time Spent with Patient (in minutes): 55
[2023-05-28 12:31] LABS: Glucose - Point of Care 145 mg/dl (70-99)
--- NOTE | 2023-05-28 12:42 | W.PN.NEPH.PH ---
Today's Communication / Plan
-
- patient to be made hospice
Assessment/Plan
-
Impression:
Admission for hypoxic respiratory insufficiency in setting of atrial fibrillation with rapid ventricular response
Profound azotemia
CKD stage IV
Hyponatremia
Anemia
BPH with chronic Ferro
Myelodysplastic syndrome
Paroxysmal atrial fibrillation on chronic Eliquis
Diabetes
Sacral trauma
Plan:
noted to be hypernatremic this AM, had changed IVF to D5W but patient and family pursuing comfort care
nephrology will sign off at this time
-
-
Date of Service: May 28, 2023
CC / HPI / ROS
-
Chief Complaint:
LANE
History of Present Illness:
creatinine improved at 2.4
hemodynamically more stable but requiring midodrine
ferro exchanged yesterday
Review of Systems:
ferro
confused
poor po intake
no sob
Labs
-
Labs:
WBC 6.0 10^3/uL (4.8-10.8) 05/27/23 03:13
RBC 2.26 10^6/uL (4.70-6.10) L 05/27/23 03:13
Hgb 7.9 g/dL (13.0-18.0) L 05/27/23 03:13
Hct 24.6 % (39.0-52.0) L 05/27/23 03:13
Plt Count 145 10^3/uL (130-400) 05/27/23 03:13
Sodium 146 mmol/L (135-145) H 05/28/23 04:18
Potassium 4.7 mmol/L (3.5-5.1) 05/28/23 04:18
Chloride 110 mmol/L (98-107) H 05/28/23 04:18
Carbon Dioxide 22 mmol/L (22-30) 05/28/23 04:18
BUN 90 mg/dl (9-20) H 05/28/23 04:18
Creatinine 2.4 mg/dL (0.7-1.3) H 05/28/23 04:18
eGFR 25.63 05/28/23 04:18
Glucose 82 mg/dl (70-99) 05/28/23 04:18
Calcium 8.4 mg/dl (8.4-10.2) 05/28/23 04:18
Lgj-S-Muqhgqtjpqj Pept 944 pg/ml 05/18/23 12:02
Albumin 3.0 g/dl (3.5-5.0) L 05/18/23 12:02
Physical Exam
-
Vital Signs:
Vital Signs
Temp Pulse Resp BP Pulse Ox
97.7 F 74 21 141/58 93
05/28/23 07:10 05/28/23 10:00 05/28/23 10:00 05/28/23 10:00 05/28/23 10:00
Cardiovascular:: Irregular rate and rhythm
Respiratory:: Bilateral: Coarse
Lung Excursion:: Abnormal
Abdomen:: Distended, Nontender and Soft
Bowel Sounds:: Normal
Extremity Edema:: None: Bilateral:
Ferro Catheter: Yes
[2023-05-28] MEDS: DILAUDID 0.5 MG IV ×2 (13:18→21:26)
--- NOTE | 2023-05-28 13:33 | PTCARENOTE ---
pt agitated at family at bedside. son poa. spoke to family outside of room updated on his condition and plan of care. son states this is is normal disposition but does appear confused also.
--- NOTE | 2023-05-28 16:09 | PTCARENOTE ---
report called to floor. pt transferred with cell phone, pad, clothes and dentures.
--- NOTE | 2023-05-28 16:18 | PTCARENOTE ---
Rec'd pt from IMU via bed. He appears weak and frail and currently on comfort measures. Pt is as DNR. Report obtained from Lonnie. Pt drowsy and confused. Moans when turned. Sacral area red. Buttocks with stage 2 open breakdown. Juan C applied
for protection and comfort. Pt asking for his ice chips. Ok for pt to go ahead with comfort feedings. Pt and family aware of the aspiration risks. Pt waiting for family who was just here. Will cont to be supportive to pt and family. will cont to
monitor.
--- NOTE | 2023-05-28 17:26 | PTCARENOTE ---
Pt transferred to floor with his I Pad, Cell phone and bag of clothes. Partial denture noted in pt's upper mouth. Bottom teeth are his own. Will cont to monitor.
[2023-05-28] MEDS: ATIVAN 0.5 MG IV (23:01)
[2023-05-28] MEDS: NSS (PRESERVATIVE FREE) 0.25 ML IV (23:01)
[2023-05-29] MEDS: DILAUDID 0.5 MG IV ×4 (04:24→21:10)
[2023-05-29 07:10] VITALS: BP 100/81
[2023-05-29] MEDS: ProAmatine PO (08:37)
--- NOTE | 2023-05-29 12:31 | HOSPNOTE ---
Will evaluate tomorrow for inpatient hospice. Will continue to follow and update.
--- NOTE | 2023-05-29 12:46 | W.PN.HOSP.TC ---
Addendum entered and electronically signed by Hieu Cook DO 05/30/23 14:13:
Acute delirium of unclear etiology
Original Note:
Today's Communication/Plan
-
Comfort measures
Assessment / Plan
Assessment / Plan
Gen-comatose, heavy respirations
HEENT-NC, AT, anicteric, clear oral mm
Neck-supple
CV-reg, no M, +S1/S2
Lungs-clear B/L
Abd-soft, NT, ND
Ext-no edema
Musculoskeletal-no cyanosis, clubbing
Skin-warm and dry
Mild oral and severe pharyngeal Dysphagia -continue comfort measures.
hypotension
LANE on CKD stage IV
Mild hematuria-Eliquis held.
Acute hypoxic respiratory insufficiency - possibly due to rapid atrial fibrillation.� Oxygenation normal on room air.
Paroxysmal atrial fibrillation now with bradycardia -TSH normal. Amiodarone stopped. Hold metoprolol 50mg BID as strict npo. Eliquis held for hematuria and strict NPO.
Elevated troponin -suspect non-MA troponin elevation due to acute illness. Troponins have peaked.
Hyponatremia - ?due to hypovolemia-IVF for now. resolved.
DM2 with hyperglycemia -new diagnosis of diabetes. Hemoglobin A1c 6.5%. Would manage with diet alone given his frailty and age.
Subacute bilateral sacral fractures - suspect traumatic and due to fall and underlying osteoporosis.� Has had multiple falls in the past.� Fractures confirmed by lumbar MRI performed 05/12/2023. Dr. Hagen spoke with spine surgery Dr. Dereje Devries, he does
not recommend surgical intervention.� Recommends medical management, consideration of IR consult. Patient was started on prednisone prior to admission for his sacral pain due to the fracture, discontinued after admission due to inefficacy. Pain
control as on comfort measures.
Myelodysplastic syndrome -followed by [facility].
BPH/chronic urinary retention -Ferro catheter dependent.� Patient was started on Bactrim single strength twice daily on May 15 prior to admission. � Urine culture in the hospital shows diphtheroids. No indication for antibiotics currently.
Added Flomax, Pyridium.
Suspected mild hematuria- ferro catheter exchange per urology on 05/24. Eliquis has been held. Appreciate urology recs. Diphteroids in urine culture-likely contaminated and from colonization. Will hold off on abx.
Chronic heart failure preserved EF
Mild confusion-?delirium. Monitor mentation for now. Haldol as needed for agitation.
Heterozygous hemochromatosis
Macular degeneration, nonexudative
Colon polyp/diverticulosis
Mild hyperkalemia-s/p Lokelma again.
DNR
Dispo -continue comfort measures. Patient appears to be actively dying. Discussed with son Mihir on the phone, recommend that he and family visit today. Mihir agrees with comfort measures.
Anticipated Discharge: Within 24 hours
Subjective/Interval History
-
Date of Service: May 29, 2023
Patient seen and examined. Remains comatose.
Objective Data
-
Vital Signs:
Vital Signs
Temp Pulse Resp BP Pulse Ox
98.6 F 102 10 100/81 88
05/29/23 07:10 05/29/23 07:10 05/29/23 07:10 05/29/23 07:10 05/29/23 09:20
I&O
05/28/23 05/29/23 05/30/23
06:59 06:59 06:59
Intake Total 60 / 60
Output Total 975 / 975 370 / 370
Balance -975 / -975 -310 / -310
Review of Systems
-
Unable to obtain full review of systems at this time due to: Acuity
--- NOTE | 2023-05-29 12:47 | CM ---
Reviewed the chart notes and spoke with the patient's RN. Patient is comfort care at this time. CM continues to be available to patient/family and is monitoring medical plan for needs at discharge.
Plan: Comfort Care.
[2023-05-29 23:33] VITALS: BP 114/47
[2023-05-30] MEDS: DILAUDID 0.5 MG IV ×2 (02:58→06:03)
--- NOTE | 2023-05-30 07:12 | W.PN.DEATH ---
Pronouncement of
-
Called to see patient to pronounce.
No spontaneous heart tones or respirations noted.
Patient not responsive to verbal stimuli.
Patient is pronounced .
Time of : 06:43
Date of : 05/30/23
Family Notified: Yes (son made aware. made aware (is her decision if she wants to see him))
--- NOTE | 2023-05-30 07:30 | PTCARENOTE ---
Pt found without spontaneous heart or lung sounds. EXHIBITIONS CURATOR and MD made aware. EXHIBITIONS CURATOR at bedside to pronounce. Patient son made aware. who is admitted on made aware also. [facility] of life called and is not eligible due to age.
--- NOTE | 2023-05-30 10:46 | PTCARENOTE ---
Postmortem care completed by this RN and tech, ferro catheter and IV removed, belongings gathered in bag and labeled, sent to [facility] with patient. Gift of life notified by sfdc developer RN.
--- NOTE | 2023-05-30 13:55 | PN.CDI ---
CDI
- -
CDI:
Physician Documentation Request
Admit Date: 05/18/23 15:09
Dear Doctor Joyce,
05/28 progress note states ' Haldol as needed for agitation..... ? deliruim...'
05/28 nursing note states 'pt agitated at family at bedside.. son states this is normal disposition but does appear confused'
Could you please further clarify the most likely etiology of the confusion/altered mental status.
Encephalopathy - indicate type, such as metabolic, toxic, septic, alcoholic, anoxic, hypertensive etc. due to a specific condition such as UTI, CVA, hyponatremia etc.
Acute Delirium - indicate known or suspected etiology such as postoperative, due to opioids or other drugs etc. Can also indicate unknown or mixed etiologies.
Acute or subacute confusional state due to ____ (specify known or suspected etiology)
Other
Use of terms such as suspected, likely, concern for, or probable (associated with a specific diagnosis that is being evaluated, monitored, or treated as if it exists) are acceptable and can be coded in the inpatient setting, when documented at the
time of discharge.
Thank you,
Cherie Penn RN, BSN
CDI Specialist
tiger text
Please use your independent medical judgment in providing your response.
== END 2023-05-30 10:43 | disposition expired | DRG 308 ==
LOC: 2 NORTH 15:09
PROVIDERS: Hospitalist; Nurse Practitioner Family; ADMITTING PHYSICIAN Hospitalist; CONSULT PHYSICIAN Internal Medicine Cardiovascular Disease; CONSULT PHYSICIAN Specialist; EMERGENCY PHYSICIAN Student in an Organized Health Care Education/Training Program; FAMILY PHYSICIAN Family Medicine
DX: I48.0 Paroxysmal atrial fibrillation (principal); R40.20 Unspecified coma; E87.1 Hypo-osmolality and hyponatremia; S32.10XA Unspecified fracture of sacrum, initial encounter for closed fracture; N18.4 Chronic kidney disease, stage 4 (severe); I50.32 Chronic diastolic (congestive) heart failure; N39.0 Urinary tract infection, site not specified; N17.9 Acute kidney failure, unspecified; I5A Non-ischemic myocardial injury (non-traumatic); R09.02 Hypoxemia; R06.89 Other abnormalities of breathing; Z79.01 Long term (current) use of anticoagulants; D46.9 Myelodysplastic syndrome, unspecified; E11.22 Type 2 diabetes mellitus with diabetic chronic kidney disease; E83.119 Hemochromatosis, unspecified; K57.90 Diverticulosis of intestine, part unspecified, without perforation or abscess without bleeding; K63.5 Polyp of colon; Z66 Do not resuscitate; Z51.5 Encounter for palliative care; R13.10 Dysphagia, unspecified
CPT/HCPCS: 71046; 74230; 76775; 80048; 80053; 81003; 81015; 81099; 82533; 82550; 82570; 82962; 83036; 83735; 83880; 84300; 84443; 84484; 85025; 87086; 92526; 92610; 92611; 93005; 93306; 97163; 97167; 97530; 99285